=== PATIENT | female | born 1960 | race Caucasian/White ===

== ENCOUNTER 2019-11-10 19:38 | Inpatient (IN) | payer MEDICARE, OTHER ==
[~2019-11-10] VITALS: Ht 152.4 cm; Wt 84.4 kg
--- NOTE | 2019-11-10 20:05 | NUR ---
PT [facility] FOR ADMISSION TO GPS AND PSHYCHIATRIC EVAL SEEKING INPATIENT TREATMENT FOR DEPRESSION. PT AAO, VSS, NO ACUTE DISTRESS NOTED, COOPERATIVE. PT CONENCTED TO THE MONITOR AND POX
--- NOTE | 2019-11-10 20:26 | NUR ---
DR LEBRON AT BEDSIDE
--- NOTE | 2019-11-10 20:26 | NUR ---
URINE COLLECTED AND SENT TO LAB
[2019-11-10 20:42] LABS: BASOPHILS % (AUTO) 0.2 % (0.0-2.0); HEMATOCRIT 31 % (33-45); HEMOGLOBIN 10.5 g/dL (11.5-14.8); LYMPHOCYTES # (AUTO) 0.5 /CMM (0.8-4.8); LYMPHOCYTES % (AUTO) 7.7 % (20.0-44.0); MEAN CORPUSCULAR HGB CONC 34 g/dl (31.0-36.0); MEAN CORPUSCULAR VOLUME 92 fL (82-100); MONOCYTES % (AUTO) 0.8 % (2.0-12.0); NEUTROPHILS # (AUTO) 5.7 /CMM (1.8-8.9); NEUTROPHILS % (AUTO) 91.3 % (43.0-81.0); PLATELET COUNT (AUTO) 153 /CMM (150-450); RED BLOOD CELL COUNT(AUTO) 3.34 MIL/uL (4.0-5.2); WHITE BLOOD COUNT (AUTO) 6.2 K/uL (4.3-11.0)
[2019-11-10 20:47] LABS: CALCIUM, SERUM 8.6 mg/dL (8.5-10.1); CARBON DIOXIDE 26 mmol/L (21-32); CHLORIDE 97 mmol/L (98-107); CREATININE 1.1 mg/dL (0.6-1.3); GLUCOSE 122 mg/dL (74-106); SODIUM SERUM 135 mmol/L (136-145); UREA NITROGEN, BLOOD 11 mg/dL (7-18)
[2019-11-10 20:50] LABS: POTASSIUM 2.8 mmol/L (3.5-5.1)
[2019-11-10 20:55] LABS: ALANINE AMINOTRANSFERASE 40 U/L (12-78); ALKALINE PHOSPHATASE 83 U/L (46-116); ASPARTATE AMINOTRANSFERASE 87 U/L (15-37); BILIRUBIN,DIRECT 0.2 mg/dL (0.0-0.2); BILIRUBIN,TOTAL 0.5 mg/dL (0.2-1.0); TOTAL PROTEIN, SERUM 6.8 g/dL (6.4-8.2)
[2019-11-10 20:56] LABS: ACETAMINOPHEN < 2 ug/ml (10-30); ALCOHOL, BLOOD < 3 mg/dL (0-0); SALICYLATE < 2.8 mg/dL (2.8-20.0)
[2019-11-10 20:57] LABS: APPEARANCE,URINE CLEAR (CLEAR); BILIRUBIN,URINE SMALL (NEGATIVE); BLOOD, URINE MODERATE Ery/uL (NEGATIVE); COLOR,URINE YELLOW (YELLOW); KETONES,URINE 15 (NEGATIVE); LEUKOCYTE ESTERASE ,URINE NEGATIVE (NEGATIVE); NITRITE, URINE NEGATIVE (NEGATIVE); PROTEIN,URINE NEGATIVE (NEGATIVE); UGLUCOSE NEGATIVE (NEGATIVE); UROBILINOGEN,URINE 0.2 EU/dL (0.2)
[2019-11-10] MEDS ORDERED: POTASSIUM CL. PREMIX PERIPHER. 50 ML ONE ×2 (20:58→21:54)
[2019-11-10] MEDS: POTASSIUM CL. PREMIX PERIPHER. 50 ML IV SCH ×3 (21:10→23:53)
[2019-11-10 21:15] LABS: BACTERIA,URINE None seen /HPF (None Seen); SQUAMOUS EPITHELIAL CELL,UR Few /HPF (None Seen); WBC,URINE NONE SEEN /HPF (0-3)
--- NOTE | 2019-11-10 22:16 | NUR ---
PANEL CALL IN PROGRESS WITH DR JERONIMO
--- NOTE | 2019-11-10 22:43 | NUR ---
REPORT GIVEN TO REGIS EID
[2019-11-10] MEDS ORDERED: POTASSIUM CL. PREMIX PERIPHER. 100 ML ONE (22:48)
[2019-11-10] MEDS ORDERED: ONDANSETRON HCL/PF 4 MG/2 ML VIAL IVP PRN (23:30)
[2019-11-10] MEDS ORDERED: HYDROCODONE/APAP 5/325MG 1 EACH TABLET PO PRN (23:30)
[2019-11-10] MEDS ORDERED: ACETAMINOPHEN 325 MG TABLET PO PRN (23:30)
[2019-11-10] MEDS ORDERED: ZOLPIDEM TARTRATE 5 MG TABLET PO PRN (23:30)
--- NOTE | 2019-11-10 23:30 | NUR ---
MS BULB FARMWORKER NOTES RECEIVED FROM ER PER KENA THIS 59 YO FEMALE,ALERT,ORIENTED X 3-4, WITH DX OF HYPOKALEMIA,K LEVEL OF 2.8,AMBULATES WITH STANDBY ASSIST,IV POTASSIUM SECOND BAG IN PROGRESS VIA IV PUMP,SITE PATENT ON RIGHT HAND.NOTED RIGHT AND LEFT ARM SKIN DISCOLORATION,RIGHT UPPER CHEST OLD WOUND , NO DISCHARGES NOTED,OPEN TO AIR.WITH RIGHT AND LEFT GROIN REDNESS AND DIAPER RASH ON BILATERAL BUTTOCKS,WASH WITH SOAP AND WATER AND MANAGE WITH SKIN BARRIER.CALL LIGHT IN REACH,NEEDS ANTICIPATED.
[2019-11-11] VITALS: BP 113/67
--- NOTE | 2019-11-11 00:15 | NUR ---
MS RN NOTES MD VISIT SEEN AND EXAMINED BY DR PHANI MD HOSPITALIST TEASEL GIG OPERATOR TONLYNN,WITH ORDERS NOTED AND CARRIED OUT.
[2019-11-11] MEDS: POTASSIUM CL. PREMIX PERIPHER. 50 ML IV SCH ×5 (00:58→23:15)
[2019-11-11] MEDS ORDERED: LAMO25TA10 PO (02:07)
[2019-11-11] MEDS ORDERED: SACC250C PO (02:07)
[2019-11-11] MEDS ORDERED: PANT40TA2 PO (02:07)
[2019-11-11] MEDS ORDERED: LEVO100T9 PO (02:07)
[2019-11-11] MEDS ORDERED: POTA20TA83 PO (02:07)
[2019-11-11] MEDS ORDERED: ALEN70TA6 PO (02:07)
[2019-11-11] MEDS ORDERED: METH2.5T PO (02:07)
--- NOTE | 2019-11-11 06:33 | NUR ---
MS RN NOTES WITH EPISODE OF WANDERING THIS MORNING.GOING ONE ROOM TO ANOTHER ROOM,REDIRECTABLE.COMPLETED 4 BAGS OF POTASSIUM,TOLERATED WELL.REFUSED EARLY BLOOD DRAW FOR BLOOD TEST.WANTS IT LATER.IN NO ACUTE DISTRESS.WILL ENDORSE TO DAY NURSE FOR ERIKA.
[2019-11-11] MEDS: PANTOPRAZOLE 40 MG TABLET.DR PO SCH (07:30)
--- NOTE | 2019-11-11 08:02 | NUR ---
RN OPENING NOTES Patient received on room air, no sob noted, patient denies pain at this time. Patient remains a/o x 3-4. Regular diet, HC @ R hand with 22 gauge. bed at the lowest setting, call light within reach, side rails up x2.
[2019-11-11] MEDS: DOCUSATE SODIUM 100 MG CAPSULE PO SCH ×2 (08:31→16:45)
--- NOTE | 2019-11-11 08:34 | NUR ---
rn notes patient removed IV line at this time
[2019-11-11 09:22] VITALS: BP 118/66
[2019-11-11 15:35] LABS: BASOPHILS % (AUTO) 0.1 % (0.0-2.0); EOSINOPHILS % (AUTO) 0.1 % (0.0-6.0); HEMATOCRIT 30 % (33-45); HEMOGLOBIN 10.2 g/dL (11.5-14.8); LYMPHOCYTES # (AUTO) 1.1 /CMM (0.8-4.8); LYMPHOCYTES % (AUTO) 20.7 % (20.0-44.0); MEAN CORPUSCULAR HGB CONC 34 g/dl (31.0-36.0); MEAN CORPUSCULAR VOLUME 93 fL (82-100); MONOCYTES # (AUTO) 0.1 /CMM (0.1-1.30); MONOCYTES % (AUTO) 1.9 % (2.0-12.0); NEUTROPHILS # (AUTO) 4.2 /CMM (1.8-8.9); NEUTROPHILS % (AUTO) 77.2 % (43.0-81.0); PLATELET COUNT (AUTO) 107 /CMM (150-450); RED BLOOD CELL COUNT(AUTO) 3.21 MIL/uL (4.0-5.2); WHITE BLOOD COUNT (AUTO) 5.4 K/uL (4.3-11.0)
[2019-11-11 15:44] LABS: ALBUMIN 2.8 g/dL (3.4-5.0); BILIRUBIN,TOTAL 0.4 mg/dL (0.2-1.0); CALCIUM, SERUM 8.5 mg/dL (8.5-10.1); CREATININE 1.1 mg/dL (0.6-1.3); MAGNESIUM 2.1 mg/dL (1.8-2.4); PHOSPHORUS 1.6 mg/dL (2.5-4.9); TOTAL PROTEIN, SERUM 6.1 g/dL (6.4-8.2)
[2019-11-11 15:49] LABS: POTASSIUM 2.7 mmol/L (3.5-5.1)
[2019-11-11 15:51] LABS: THYROID STIMULATING HORMONE 0.042 uIU/mL (0.358-3.74)
--- NOTE | 2019-11-11 16:02 | NUR ---
rn notes Potassium level of 2.7 reported from LAB. TRANSFILL TECHNICIAN Angel Bowman made aware via text.
[2019-11-11 16:19] VITALS: BP 116/74
[2019-11-11] MEDS ORDERED: ASPIRIN 325 MG TABLET PO ONE (16:30)
[2019-11-11] MEDS: LamoTRIgine 25 MG TABLET PO SCH (16:45)
[2019-11-11] MEDS: ACIDOPHILUS/BULGARICUS 1 EACH TAB.CHEW PO SCH (16:45)
--- NOTE | 2019-11-11 16:55 | NUR ---
rn notes multiple attempts for IV at this time, unsuccessful. CATCHER FILTER TIP Angel ordered for a midline.
[2019-11-11 16:56] LABS: CALCIUM, SERUM 8.4 mg/dL (8.5-10.1); CREATININE 1.1 mg/dL (0.6-1.3)
[2019-11-11 16:58] LABS: POTASSIUM 2.7 mmol/L (3.5-5.1)
--- NOTE | 2019-11-11 18:26 | NUR ---
RN CLOSING NOTES Patient remains on room air, no sob noted, patient acts confused at times but mainly around 1/o x2. ambulatory with good balance. IV line re established at her L hand size 22. Potassium low at 2.7, but hospitalist aware. Patient receiving IV potassium at this time. Plan is for patient to go to GPS after medically clear. Bed at the lowest setting, call light within reach, side rails up x2.
--- NOTE | 2019-11-11 19:30 | NUR ---
MS RN NOTE: PATIENT RESTING IN BED, NO ACUTE DISTRESS NOTED. BREATHING EVEN AND UNLABORED, NO SOB NOTED. IV TO RIGHT HAND IN PLACE. BED LOCKED AND IN LOWEST POSITION, CALL LIGHT IN REACH. WILL CONTINUE TO MONITOR.
[2019-11-11 20:00] VITALS: BP 126/72
[2019-11-11] MEDS ORDERED: METHOTREXATE SODIUM (2.5MG) 2.5 MG TABLET PO SCH (21:00)
--- NOTE | 2019-11-12 00:15 | NUR ---
MS RN NOTE: PATIENT COMPLAINS OF IV POTASSIUM HURTS AND REFUSED TO CONTINUE WITH MORE IV MEDICATIONS, SPOKE TO BUSHLER MD, DR. JERONIMO AND RECEIVED ORDERS FOR POTASSIUM 40MEQ ORAL ONCE. ORDER NOTED AND CARRIED OUT. WILL CONTINUE TO MONITOR.
--- NOTE | 2019-11-12 06:05 | NUR ---
MS RN NOTE: PATIENT RESTING IN BED, NO ACUTE DISTRESS NOTED. BREATHING EVEN AND UNLABORED, NO SOB NOTED. IV TO RIGHT HAND IN PLACE. BED LOCKED AND IN LOWEST POSITION, CALL LIGHT IN REACH. WILL ENDORSE TO DAY NURSE TO CONTINUE WITH PLAN OF CARE.
[2019-11-12 06:52] LABS: BASOPHILS % (AUTO) 0.2 % (0.0-2.0); EOSINOPHILS % (AUTO) 1.7 % (0.0-6.0); HEMATOCRIT 26 % (33-45); HEMOGLOBIN 8.8 g/dL (11.5-14.8); LYMPHOCYTES # (AUTO) 1.3 /CMM (0.8-4.8); LYMPHOCYTES % (AUTO) 34.6 % (20.0-44.0); MEAN CORPUSCULAR HGB CONC 34 g/dl (31.0-36.0); MEAN CORPUSCULAR VOLUME 92 fL (82-100); MONOCYTES # (AUTO) 0.1 /CMM (0.1-1.30); MONOCYTES % (AUTO) 2.5 % (2.0-12.0); NEUTROPHILS # (AUTO) 2.4 /CMM (1.8-8.9); PLATELET COUNT (AUTO) 82 /CMM (150-450); RED BLOOD CELL COUNT(AUTO) 2.78 MIL/uL (4.0-5.2); WHITE BLOOD COUNT (AUTO) 3.9 K/uL (4.3-11.0)
[2019-11-12 07:24] LABS: CALCIUM, SERUM 8.2 mg/dL (8.5-10.1); CREATININE 0.9 mg/dL (0.6-1.3)
--- NOTE | 2019-11-12 07:30 | NUR ---
RN MS NOTES PT ASLEEP, EASY TO AROUSE, NO SIGN OF PAIN, NOT IN DISTRESS, CALL LIGHT WITHIN REACH, KEPT WARM AND COMFORTABLE IN BED.
[2019-11-12 07:42] LABS: POTASSIUM 2.6 mmol/L (3.5-5.1)
[2019-11-12 08:00] VITALS: BP 114/69
[2019-11-12] MEDS: ACIDOPHILUS/BULGARICUS 1 EACH TAB.CHEW PO SCH ×2 (08:21→16:46)
[2019-11-12] MEDS: PANTOPRAZOLE 40 MG TABLET.DR PO SCH (08:21)
[2019-11-12] MEDS: POTASSIUM CHLORIDE 20 MEQ TAB.PRT.SR PO SCH ×6 (08:22→15:02)
[2019-11-12] MEDS: ASPIRIN 81 MG TAB.CHEW PO SCH (08:22)
[2019-11-12] MEDS: DOCUSATE SODIUM 100 MG CAPSULE PO SCH ×2 (08:22→16:46)
[2019-11-12] MEDS: LamoTRIgine 25 MG TABLET PO SCH ×2 (08:22→16:46)
[2019-11-12] MEDS: LEVOTHYROXINE SODIUM 100 MCG TABLET PO SCH (08:22)
[2019-11-12 08:55] LABS: THYROID STIMULATING HORMONE 0.061 uIU/mL (0.358-3.74)
[2019-11-12] MEDS ORDERED: PANTOPRAZOLE 40 MG TABLET.DR PO SCH (09:00)
[2019-11-12 10:10] LABS: LYMPHOCYTES % (MANUAL) 30 % (16-48); MONOCYTES % (MANUAL) 5 % (0-11.0); NEUTROPHILS % (MANUAL) 65 (42-76)
--- NOTE | 2019-11-12 10:34 | NUR ---
RN MS NOTES PT SEEN AND EXAMINED BY DR. SPENCER, PLAN OF CARE DISCUSSED WITH PT. VERBALIZED UNDERSTANDING, PER MD, PT'S IV LINE ACCIDENTALLY OUT, PT HARDSTICK, PER MD, OK TO INSERT MIDLINE IF NEEDED, PT INFORMED AND AGREED.
--- NOTE | 2019-11-12 13:00 | NUR ---
RN MS NOTES PT IN BED, AWAKE, ALERT AND ORIENTED, NO COMPLAINT AT THIS TIME, S/P MIDLINE PLACEMENT, TOLERATED WELL. CALL LIGHT WITHIN REACH, ASSISTED TO BATHROOM NEEDED, NEEDS ATTENDED.
[2019-11-12 14:26] LABS: CREATININE, URINE 83.9 MG/DL (30.0-125.0)
[2019-11-12 16:00] VITALS: BP_SYST 114; BP_SYST 122; BP_DIAS 67; BP_DIAS 69
--- NOTE | 2019-11-12 18:36 | NUR ---
RN MS NOTES PT IN BED, AWAKE, ALERT AND ORIENTED, DENIES PAIN, NOT IN DISTRESS, CALL LIGHT WITHIN REACH, ASSISTED TO BATHROOM NEEDED, COMPLIANT WITH MEDS AND INTERVENTIONS, NO BEHAVIOR PROBLEM NOTED, ALL NEEDS ATTENDED.
--- NOTE | 2019-11-12 19:25 | NUR ---
RN OPEN NOTES RECEIVED PATIENT AWAKE IN BED. A/OX3. NO SIGNS OF DISTRESS OR DISCOMFORT. BREATHING EVEN AND UNLABORED. HAS JUANIS MIDLINE, PATENT AND INTACT, NO SIGNS OF REDNESS OR INFILTRATION. BED IN LOW LOCKED POSITION WITH SIDE RAILS X2. CALL LIGHT WITHIN REACH. WILL CONTINUE TO MONITOR.
[2019-11-12 20:00] VITALS: BP 129/73
[2019-11-12 20:14] LABS: HEMOGLOBIN 9.1 g/dL (11.5-14.8)
[2019-11-12] MEDS ORDERED: POTASSIUM CHLORIDE 20 MEQ TAB.PRT.SR PO ONE ×2 (23:30)
--- NOTE | 2019-11-13 06:51 | NUR ---
RN CLOSING NOTES PATIENT RESTING COMFORTABLY IN BED, EASILY AROUSABLE. A/OX3. NO SIGNS OF DISTRESS OR DISCOMFORT. BREATHING EVEN AND UNLABORED. HAS JUANIS MIDLINE, PATENT AND INTACT, NO SIGNS OF REDNESS OR INFILTRATION. ALL NEEDS MET. NO SIGNIFICANT CHANGES THROUGH THE NIGHT. BED IN LOW LOCKED POSITION WITH SIDE RAILS X2. CALL LIGHT WITHIN REACH. WILL ENDORSE TO AM SHIFT FOR ERIKA.
[2019-11-13 07:06] LABS: BASOPHILS % (AUTO) 0.4 % (0.0-2.0); EOSINOPHILS % (AUTO) 6.2 % (0.0-6.0); HEMATOCRIT 26 % (33-45); HEMOGLOBIN 8.9 g/dL (11.5-14.8); LYMPHOCYTES # (AUTO) 1.7 /CMM (0.8-4.8); MEAN CORPUSCULAR HGB CONC 34 g/dl (31.0-36.0); MEAN CORPUSCULAR VOLUME 93 fL (82-100); MONOCYTES % (AUTO) 0.9 % (2.0-12.0); NEUTROPHILS # (AUTO) 2.5 /CMM (1.8-8.9); NEUTROPHILS % (AUTO) 54.5 % (43.0-81.0); PLATELET COUNT (AUTO) 83 /CMM (150-450); WHITE BLOOD COUNT (AUTO) 4.6 K/uL (4.3-11.0)
[2019-11-13 07:27] LABS: CALCIUM, SERUM 7.9 mg/dL (8.5-10.1); CREATININE 0.9 mg/dL (0.6-1.3); POTASSIUM 3.1 mmol/L (3.5-5.1)
--- NOTE | 2019-11-13 07:30 | NUR ---
RN MS NOTES PT IN BED, ASLEEP, EASY TO AROUSE, ALERT AND ORIENTED, NO COMPLAINT OF PAIN, NOT IN DISTRESS, CALL LIGHT WITHIN REACH, KEPT DIRECTOR OF INSTRUCTIONAL TECHNOLOGY BED.
[2019-11-13 08:00] VITALS: BP 118/72
[2019-11-13] MEDS: DOCUSATE SODIUM 100 MG CAPSULE PO SCH ×2 (08:31→16:40)
[2019-11-13] MEDS: LEVOTHYROXINE SODIUM 100 MCG TABLET PO SCH (08:31)
[2019-11-13] MEDS: LamoTRIgine 25 MG TABLET PO SCH ×2 (08:31→16:40)
[2019-11-13] MEDS: PANTOPRAZOLE 40 MG TABLET.DR PO SCH (08:31)
[2019-11-13] MEDS: ASPIRIN 81 MG TAB.CHEW PO SCH (08:31)
[2019-11-13] MEDS: POTASSIUM CHLORIDE 20 MEQ TAB.PRT.SR PO SCH ×4 (08:31→11:17)
[2019-11-13] MEDS: ACIDOPHILUS/BULGARICUS 1 EACH TAB.CHEW PO SCH ×2 (08:31→16:40)
[2019-11-13] MEDS ORDERED: ASPI-1169 PO (09:34)
[2019-11-13 16:21] VITALS: BP 140/68
--- NOTE | 2019-11-13 18:28 | NUR ---
RN MS NOTES PT IN BED, AWAKE, ALERT AND VERBALLY RESPONSIVE, DENIES PAIN, NOT IN DISTRESS, CALL LIGHT WITHIN REACH, ASSISTED TO BATHROOM NEEDED, NO BEHAVIOR PROBLEM NOTED, COMPLIANT WITH MEDS AND NURSING INTERVENTION, DUE MEDS GIVEN, SAFETY PRECAUTIONS OBSERVED, ALL NEEDS ATTENDED.
--- NOTE | 2019-11-13 19:00 | NUR ---
RN medsurg opening notes Received Pt from morning nurse. Pt is alert and orinetedX3. Respiration is normal in room air. No SOB. No S/S of distress noted. JUANIS midline is clean, intact, patent and flush without resistance. Safety precautions is maintained. Bed at low position, brakes locked, side rails upX3 and call light is within reach. Will continue to monitor.
[2019-11-13 20:00] VITALS: BP 136/78
[2019-11-13 20:03] VITALS: BP 136/78
--- NOTE | 2019-11-13 21:40 | NUR ---
RN medsurg notes Pt refused skin pictures taken. Made aware risks and benefits. Pt keep refusing.
--- NOTE | 2019-11-13 21:50 | NUR ---
STANTON eng transferred notes Transferred Pt To GPS with a wheelchair with RADHIKA Cotter. Report given to STANTON BRISENO. Pt's belongings is given to STANTON Briseno. VS is stable. JUANIS midline is removed. D/C paperwork is signed by Pt. Pt verbalized understanding. Pt's belonging is signed and given to Pt. Pt verbalize understanding.
[2019-11-14] MEDS ORDERED: SACC250C PO (01:56)
[2019-11-14] MEDS ORDERED: METH2.5T PO (01:56)
[2019-11-14] MEDS ORDERED: ALEN70TA6 PO (01:56)
[2019-11-14] MEDS ORDERED: PANT40TA2 PO (01:56)
[2019-11-14] MEDS ORDERED: LAMO25TA10 PO (01:56)
[2019-11-14] MEDS ORDERED: LEVO100T9 PO (01:56)
[2019-11-14] MEDS ORDERED: POTA20TA83 PO (01:56)
[2019-11-14] MEDS ORDERED: ASPI-605 PO (01:56)
[2019-11-16] MEDS ORDERED: ALENDRONATE 70 MG TABLET PO SCH (06:30)
[2019-11-16] MEDS ORDERED: METHOTREXATE SODIUM (2.5MG) 2.5 MG TABLET PO SCH (09:00)
== END 2019-11-13 21:50 | DRG 640 ==
LOC: ER 19:39 → MED 22:54
PROVIDERS: ADMIT Internal Medicine; ATTEND Nurse Practitioner Acute Care
PROC: 05HB33Z Insertion of Infusion Device into Right Basilic Vein, Percutaneous Approach (ICD-10-PCS; principal; 2019-11-12)
DX: E87.6 Hypokalemia (principal); I21.A1 Myocardial infarction type 2; E23.0 Hypopituitarism; D68.59 Other primary thrombophilia; I10 Essential (primary) hypertension; R29.6 Repeated falls; Z79.890 Hormone replacement therapy; Z79.82 Long term (current) use of aspirin; Z86.011 Personal history of benign neoplasm of the brain; D64.9 Anemia, unspecified; E03.9 Hypothyroidism, unspecified; E87.1 Hypo-osmolality and hyponatremia; Z88.0 Allergy status to penicillin; Z88.8 Allergy status to other drugs, medicaments and biological substances; Z79.899 Other long term (current) drug therapy; Z79.83 Long term (current) use of bisphosphonates; D63.8 Anemia in other chronic diseases classified elsewhere; Z91.81 History of falling; R26.9 Unspecified abnormalities of gait and mobility; Z68.36 Body mass index [BMI] 36.0-36.9, adult; E66.01 Morbid (severe) obesity due to excess calories; F32.9 Major depressive disorder, single episode, unspecified; F41.9 Anxiety disorder, unspecified; E88.81 Metabolic syndrome and other insulin resistance; Z74.09 Other reduced mobility; J01.20 Acute ethmoidal sinusitis, unspecified
CPT/HCPCS: 36415; 70450-TC; 71045-TC; 80048-TC; 80053-TC; 80061-TC; 80076-TC; 80305; 81000-TC; 82570-TC; 83735-TC; 84100-TC; 84132-TC; 84133-TC; 84439-TC; 84443-TC; 84484-TC; 85025-TC; 85027-TC; 87081-TC; 93307-TC; G0378; G0480; J3480; J7050; J8610

== ENCOUNTER 2019-11-13 22:20 | Inpatient (IN) | payer MEDICARE, OTHER ==
[~2019-11-13] VITALS: Ht 157.5 cm; Wt 82.1 kg
[2019-11-13 22:00] VITALS: BP 142/98
--- NOTE | 2019-11-13 22:00 | NUR ---
GPS ADMISSION NOTES: ADMITTED A 59YO FEMALE FROM [facility]LOOR ON VOLUNTARY HOLD. PATIENT WAS INITIALLY ADMITTED AT THE MED SURG FLOOR DUE TO HYPOKALEMIA. PATIENT SIGNED TO BE ADMITTED HERE VOLUNTARILY. PATIENT WILL BE UNDER THE CARE OF DR. KONG AND DR. JERONIMO FOR PSYCH AND MEDICAL RESPECTIVELY. DR. KONG WAS ON THE UNIT FOR ROUNDS DURING HER TRANSFER. PATIENT WAS BROUGHT INTO THE UNIT VIA WHEELCHAIR. UPON FACE TO FACE ASSESSMENT, PATIENT PRESENTS ALERT AND ORIENTED X3, APPEARS SAD, DEPRESSED, TALKS MINIMALLY, SHOWS LESS INTEREST OF THE SURROUNDING AROUND HER, NOTED TO BE UNKEMPT. REALITY ORIENTATION DONE. SKIN AND BODY ASSESSMENT DONE- PICTURES TAKEN AND PLACED IN THE CHART. WOUND CONSULT TRIGGERED FOR THE REDNESS AND SCRATCH LEDESMA ON HER SACRAL AREA. WHEN ASKED ABOUT HOW SHE GOT THE REDNESS, PATIENT STATED "I MUST'VE SCRATCH MYSELF, OR I DON'T KNOW". DURING ASSESSMENT INTERVIEW PATIENT SEEMS UNSURE OF HER ANSWERS. SHE WAS MADE TO SIGN THE ADMISSION PAPERS WHICH WE WAS ABLE TO DO WITH NO PROBLEM. PT EVAL TRIGGERED O FOR PATIENT- SHE HAS HAD MULTIPLE FALLS AT HOME.ACCORDING TO PATIENT, SHE LIVES AT HOME WITH 80SOMETHING YEAR OLD MOM AND HER 25YO NIECE. AND THAT THEY'VE HAD TO CALL COIN MACHINE ASSEMBLER ON MULTIPLE OCCASIONS BECAUSE OF HER FALLS. PATIENT ORIGINALLY WAS AT [facility] THEN BROUGHT TO [facility]. PATIENT ORIENTED OF THE UNIT, STAFF, DOCTORS AND CARE PLAN. TREATMENT PLAN INITIATED. PROVIDED PATIENT WITH PATIENT'S RIGHTS HANDBOOK AND GUIDE TO PRESCRIPTION MEDICATIONS.WILL REPORT MEDICATIONS TO MEDICAL DOCTOR FOR RECONCILIATION. Q15 MIN CHECKS INITIATED. BELONGINGS AND CONTRABAND CHECKED AND PLACED INTO DESIGNATED PLACES APPROPRIATELY. WILL ENDORSE PATIENT TO DAY SHIFT NURSE.
[~2019-11-13 22:20] MED LIST: ALEN70TA6 PO; ASPI-1169 PO; LAMO25TA10 PO; LEVO100T9 PO; METH2.5T PO; PANT40TA2 PO; POTA20TA83 PO; SACC250C PO
[2019-11-13] MEDS ORDERED: MAG HYDROX/AL HYDROX/SIMETH 30 ML UDC PO PRN (22:30)
[2019-11-13] MEDS ORDERED: TEMAZEPAM 7.5 MG CAPSULE PO PRN (22:30)
[2019-11-13] MEDS ORDERED: BLOOD SUGAR DIAGNOSTIC 1 EACH STRIP IN ONE (22:30)
[2019-11-13] MEDS ORDERED: ACETAMINOPHEN 325 MG TABLET PO PRN (22:30)
[2019-11-13] MEDS ORDERED: LORAZEPAM 0.5 MG TABLET PO PRN (22:30)
[2019-11-13] MEDS ORDERED: MAGNESIUM HYDROXIDE 30 ML UDC PO PRN (22:30)
[2019-11-14] MEDS ORDERED: METH2.5T PO (01:56)
[2019-11-14] MEDS ORDERED: ASPI-605 PO (01:56)
[2019-11-14] MEDS ORDERED: PANT40TA2 PO (01:56)
[2019-11-14] MEDS ORDERED: LEVO100T9 PO (01:56)
[2019-11-14] MEDS ORDERED: SACC250C PO (01:56)
[2019-11-14] MEDS ORDERED: POTA20TA83 PO (01:56)
[2019-11-14] MEDS ORDERED: ALEN70TA6 PO (01:56)
[2019-11-14] MEDS ORDERED: LAMO25TA10 PO (01:56)
[2019-11-14 08:00] VITALS: BP 118/66
--- NOTE | 2019-11-14 10:41 | NUR ---
RN-CO: Primary RN Benson notified Dr Cardona for the admission and to reconcile home medications. Made him aware that K level is 3.1.
--- NOTE | 2019-11-14 10:43 | NUR ---
RN-CO: Dr Cardona ordered BMP.
[2019-11-14] MEDS: ACIDOPHILUS/BULGARICUS 1 EACH TAB.CHEW PO SCH ×2 (11:07→16:29)
--- NOTE | 2019-11-14 14:45 | NUR ---
Family Contact: SW called the pts mother, Varsha ([phone]), and left a voicemail stating that she would like to discuss the pts initial treatment and discharge plan.
[2019-11-14 16:00] VITALS: BP 140/78
[2019-11-14] MEDS: LamoTRIgine 25 MG TABLET PO SCH (16:29)
[2019-11-14 20:30] VITALS: BP 120/82
[2019-11-14 22:00] VITALS: BP 118/66
[2019-11-15] VITALS (9 sets, daily range): BP systolic 69–145; BP diastolic 47–89
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
[2019-11-15 07:14] LABS: CALCIUM, SERUM 8.5 mg/dL (8.5-10.1); CREATININE 0.9 mg/dL (0.6-1.3); POTASSIUM 2.9 mmol/L (3.5-5.1)
[2019-11-15] MEDS: LEVOTHYROXINE SODIUM 100 MCG TABLET PO SCH (08:44)
[2019-11-15] MEDS: PANTOPRAZOLE 40 MG TABLET.DR PO SCH (08:44)
[2019-11-15] MEDS: LamoTRIgine 25 MG TABLET PO SCH ×2 (08:44→17:12)
[2019-11-15] MEDS: POTASSIUM CHLORIDE 20 MEQ TAB.PRT.SR PO SCH ×3 (08:44→12:48)
[2019-11-15] MEDS: ESCITALOPRAM OXALATE (10 MG) 10 MG TABLET PO SCH (08:45)
[2019-11-15] MEDS: ACIDOPHILUS/BULGARICUS 1 EACH TAB.CHEW PO SCH ×2 (08:45→17:12)
[2019-11-15] MEDS: ASPIRIN EC 81 MG TABLET.DR PO SCH (08:45)
--- NOTE | 2019-11-15 08:46 | NUR ---
Initial Discharge Plan: Pt currently resides at her home with her mother and her niece located at [address] [place] [address]; ([phone]). Per pt, she would like to return to her home. XAVI will work with the pt and the MD regarding appropriate discharge planning. SW will form a safe and proper discharge plan.
--- NOTE | 2019-11-15 10:15 | NUR ---
RT NOTES Rapid response was called, pt observed to be on room air (SpO2 100%) with no SOB or respiratory distress noted. RT was cleared by char house supervisor
[2019-11-15] MEDS ORDERED: POTASSIUM CHLORIDE 20 MEQ TAB.PRT.SR PO SCH (10:30)
--- NOTE | 2019-11-15 10:59 | NUR ---
WOUND CARE CONSULT: PT PRESENTS WITH SOME INCONTINENCE ASSOCIATED SKIN DAMAGE TO BUTTOCKS WITH SOME SCRATCH LEDESMA PRESENT ON ADMISSION. RECOMMENDATIONS MADE FOR SKIN CARE AND PROTECTION. DISCUSSED WITH NURSING STAFF. WILL SEE PRN. BARNEY IN AGREEMENT WITH PLAN OF CARE. Addendum: 11/15/19 at 1100 by SHAHLA SCHULTE WNDNU Amended: Links added.
--- NOTE | 2019-11-15 10:59 | NUR ---
RN NOTE- RAPID RESPONSE TEAM CALLED. PT W B/P 69/47, HR- 78, RR-16, SATS 99% RA. PT SOMNOLENT THOUGH RESPONSIVE. ACCUCHECK -108. PT PLACED IN [place] AND SUBSEQUENT IMPROVEMENT OF BP RESULTED. DR BEASLEY NOTIFIED AND AWARE. WILL FOLLOW UP AND MONITOR PT .
[2019-11-15] MEDS ORDERED: Z GUARD REMEDY 2 OZ OINT TP PRN (11:00)
[2019-11-15] MEDS: Z GUARD REMEDY 2 OZ OINT TP SCH (11:18)
--- NOTE | 2019-11-15 11:29 | NUR ---
RN NOTE- PT BP MUCH BETTER. ALERT RESPONSIVE. BP- 121/74, HR-90, RR-18, TEMP- 98.0. DR BEASLEY ORDERED POTASSIUM 40 MEQ WHICH WAS GIVEN. WILL CONTINUE TO MONITOR PT VS AND STATUS.
--- NOTE | 2019-11-15 15:34 | NUR ---
RN-CO: Dr Cardona seen and examined the patient with order of PT evaluation and treatment. Noted. Made MD aware of patient's poor PO intake.
--- NOTE | 2019-11-16 05:53 | NUR ---
PRN NOTE PT V/S TAKEN @ 0535 BP105/75, P101, O2 SAT 97%. PT WEAK, ASHEN LOOKING, NEEDED 2 PERSON ASSIST TO STAND. INITIALLY REFUSED PEST CONTROLLER TO CHANGE HER DIAPER, SKILLED NURSE PROVIDED TEACHING ON THE IMPORTANCE OF SKIN INTEGRITY AND INFECTION CONTROL BEFORE PT RELUCTANTLY AGREED FOR HER DIAPER TO BE CHANGED. WILL CONTINUE TO MONITOR AND ENDORSE TO AM SHIFT.
[2019-11-16 06:42] LABS: EOSINOPHILS % (AUTO) 12.8 % (0.0-6.0); HEMATOCRIT 32 % (33-45); HEMOGLOBIN 10.8 g/dL (11.5-14.8); LYMPHOCYTES # (AUTO) 1.1 /CMM (0.8-4.8); LYMPHOCYTES % (AUTO) 34.7 % (20.0-44.0); MEAN CORPUSCULAR HGB CONC 34 g/dl (31.0-36.0); MEAN CORPUSCULAR VOLUME 92 fL (82-100); MONOCYTES # (AUTO) 0.1 /CMM (0.1-1.30); MONOCYTES % (AUTO) 2.7 % (2.0-12.0); NEUTROPHILS # (AUTO) 1.5 /CMM (1.8-8.9); NEUTROPHILS % (AUTO) 48.8 % (43.0-81.0); PLATELET COUNT (AUTO) 70 /CMM (150-450); RED BLOOD CELL COUNT(AUTO) 3.42 MIL/uL (4.0-5.2)
[2019-11-16 07:09] LABS: CALCIUM, SERUM 8.8 mg/dL (8.5-10.1); CREATININE 1.1 mg/dL (0.6-1.3)
[2019-11-16] MEDS: LEVOTHYROXINE SODIUM 100 MCG TABLET PO SCH (07:59)
[2019-11-16 08:00] VITALS: BP_SYST 112; BP_SYST 138; BP_DIAS 59; BP_DIAS 82
[2019-11-16] MEDS: ASPIRIN EC 81 MG TABLET.DR PO SCH (08:00)
[2019-11-16] MEDS: ACIDOPHILUS/BULGARICUS 1 EACH TAB.CHEW PO SCH (08:00)
[2019-11-16] MEDS: POTASSIUM CHLORIDE 20 MEQ TAB.PRT.SR PO SCH (08:00)
[2019-11-16] MEDS: PANTOPRAZOLE 40 MG TABLET.DR PO SCH (08:00)
[2019-11-16] MEDS: LamoTRIgine 25 MG TABLET PO SCH (08:00)
[2019-11-16] MEDS: ESCITALOPRAM OXALATE (10 MG) 10 MG TABLET PO SCH (08:00)
--- NOTE | 2019-11-16 08:12 | NUR ---
GPS RN NOTE: PT WAS SEEN BY DR. BEASLEY, NOTIFIED PT LABS THIS MORNING WBC 3.O,TBC 3.42.HG 10.8 HCT 32.PH 70,NA 13O,K 3.0,BUN 6.BP 112/59,T 99.1,P 53,R 19. PT VOMITING, NOT EATING NOT DRINKING. NO NEW ORDERS AT THIS TIME.
[2019-11-16] MEDS: Z GUARD REMEDY 2 OZ OINT TP SCH (08:14)
[2019-11-16] MEDS ORDERED: ALENDRONATE 70 MG TABLET PO SCH (09:00)
[2019-11-16] MEDS ORDERED: IV NS 0.9% 1,000 ML IV SCH (09:00)
[2019-11-16] MEDS: POTASSIUM CHLORIDE 20 MEQ TAB.PRT.SR PO ONE ×2 (09:03→09:13)
[2019-11-16] MEDS ORDERED: IV NS 0.9% 1,000 ML IV PRN (09:30)
--- NOTE | 2019-11-16 09:36 | NUR ---
GPS RN NOTE; PT UNABLE TO TAKE POTASSIUM 80 MEQ CONTINUE VOMITING GREENISH COLOR WITH BLOOD MD AWARE, VS PB 96/61,PA 103, O2 95%, T 101 AFTER TYLENOL. GALE BAEZ NOTIFIED WITH ORDER TO TRANSFER TO MEDICAL FLOOR.
--- NOTE | 2019-11-16 09:56 | NUR ---
Dr. Hansen made awake of the transfer and ordered to d/c pt. to the medical floor and to hold psych meds.
[2019-11-16 10:21] LABS: BAND % (MANUAL) 2 % (0.0-5.0); EOSINOPHILS % (MANUAL) 11 % (0-4); LYMPHOCYTES % (MANUAL) 20 % (16-48); MONOCYTES % (MANUAL) 7 % (0-11.0); NEUTROPHILS % (MANUAL) 60 (42-76)
--- NOTE | 2019-11-16 10:45 | NUR ---
GPS DISCHARGE NOTE: PATIENT IS A 59Y/O DISCHARGED TO TELE ROOM 308 B REPORT GIVEN TO LEANN EID . DIAGNOSIS HYPOKALEMIA PER DR GALE KIMBROUGH PT TO MEDICAL FLOOR, PT REFUSED SKIN ASSESSMENT AT THE TIME OF DISCHARGE, DENIES SI/HI AVH, PERSONAL BELONGINGS TRANSFER WITH PATIENT. MEDICATIONS RECONCILED WITH ALONG WITH PSYCHIATRIC DISCHARGE ORDERS GIVEN WITH PATIENT .PATIENT REFUSED TO SIGN DISCHARGE PAPERWORK DUE TO WEAKNESS.
--- NOTE | 2019-11-16 10:47 | NUR ---
Discharge Note: Pt was discharged to the Medical Floor of [facility] due to abnormal labs.
--- NOTE | 2019-11-16 10:47 | NUR ---
Family Contact: SW called the pts mother, Varsha ([phone]), and left a voicemail stating that the pt was discharged to the medical floor of the hospital today.
[2019-11-16] MEDS ORDERED: ASPI-1152 PO (11:00)
[2019-11-16] MEDS ORDERED: MAG30ORA PO (11:00)
[2019-11-16] MEDS ORDERED: ALLA266C2 TP (11:00)
[2019-11-16] MEDS ORDERED: MAGN400O6 PO (11:00)
[2019-11-16] MEDS ORDERED: TEMA7.5C12 PO (11:00)
[2019-11-16] MEDS ORDERED: ACET-868 PO (11:00)
[2019-11-16] MEDS ORDERED: ESCI5TAB PO (11:00)
[2019-11-16] MEDS ORDERED: ACID1TAB12 PO (11:00)
[2019-11-16] MEDS ORDERED: LORA-259 PO (11:00)
[2019-11-16] MEDS ORDERED: NORM10004 IV (11:00)
[2019-11-18] MEDS ORDERED: METHOTREXATE SODIUM (2.5MG) 2.5 MG TABLET PO SCH (09:00)
== END 2019-11-16 10:45 | disposition short-term general hospital (02) | DRG 885 ==
LOC: GPS 22:20
PROVIDERS: ADMIT Psychiatry & Neurology Psychiatry; ATTEND Internal Medicine
DX: F33.2 Major depressive disorder, recurrent severe without psychotic features (principal); E87.1 Hypo-osmolality and hyponatremia; D68.59 Other primary thrombophilia; F29 Unspecified psychosis not due to a substance or known physiological condition; F41.9 Anxiety disorder, unspecified; E03.9 Hypothyroidism, unspecified; E87.6 Hypokalemia; I10 Essential (primary) hypertension; I25.2 Old myocardial infarction; M19.90 Unspecified osteoarthritis, unspecified site; E66.9 Obesity, unspecified; Z68.36 Body mass index [BMI] 36.0-36.9, adult; D63.8 Anemia in other chronic diseases classified elsewhere; R29.6 Repeated falls
CPT/HCPCS: 36415; 80048-TC; 80061-TC; 82565-TC; 82962-TC; 85025-TC; 97116-TC; 97530-TC

== ENCOUNTER 2019-11-16 10:49 | Inpatient (IN) | payer MEDICARE, OTHER ==
[~2019-11-16] VITALS: Ht 157.5 cm; Wt 78.9 kg
[~2019-11-16 10:49] MED LIST changes: -ASPI-1169 PO; +ASPI-605 PO
[2019-11-16] MEDS ORDERED: ESCI5TAB PO (11:00)
[2019-11-16] MEDS ORDERED: ACET-868 PO (11:00)
[2019-11-16] MEDS ORDERED: LORA-259 PO (11:00)
[2019-11-16] MEDS ORDERED: MAG30ORA PO (11:00)
[2019-11-16] MEDS ORDERED: NORM10004 IV (11:00)
[2019-11-16] MEDS ORDERED: ASPI-1152 PO (11:00)
[2019-11-16] MEDS ORDERED: ACID1TAB12 PO (11:00)
[2019-11-16] MEDS ORDERED: MAGN400O6 PO (11:00)
[2019-11-16] MEDS ORDERED: ALLA266C2 TP (11:00)
[2019-11-16] MEDS ORDERED: TEMA7.5C12 PO (11:00)
[2019-11-16 12:00] VITALS: BP 106/63
[2019-11-16] MEDS ORDERED: ONDANSETRON HCL/PF 4 MG/2 ML VIAL IVP PRN (13:30)
[2019-11-16] MEDS ORDERED: ACETAMINOPHEN 325 MG TABLET PO PRN (13:30)
[2019-11-16] MEDS ORDERED: ZOLPIDEM TARTRATE 5 MG TABLET PO PRN (13:30)
[2019-11-16] MEDS ORDERED: MAGNESIUM HYDROXIDE 30 ML UDC PO PRN (13:30)
[2019-11-16] MEDS ORDERED: Z GUARD REMEDY 2 OZ OINT TP PRN (13:30)
[2019-11-16] MEDS ORDERED: HYDROCODONE/APAP 5/325MG 1 EACH TABLET PO PRN (13:30)
[2019-11-16] MEDS ORDERED: MAG HYDROX/AL HYDROX/SIMETH 30 ML UDC PO PRN (13:30)
[2019-11-16 16:00] VITALS: BP 92/68
[2019-11-16] MEDS: IV NS 0.9% 1,000 ML IV PRN (19:04)
[2019-11-16 20:00] VITALS: BP 136/84
[2019-11-17] MEDS: IV NS 0.9% 1,000 ML IV PRN ×2 (05:54→16:51)
[2019-11-17 06:23] LABS: BASOPHILS % (AUTO) 1.1 % (0.0-2.0); EOSINOPHILS % (AUTO) 11.4 % (0.0-6.0); HEMATOCRIT 28 % (33-45); HEMOGLOBIN 9.4 g/dL (11.5-14.8); LYMPHOCYTES # (AUTO) 1.3 /CMM (0.8-4.8); LYMPHOCYTES % (AUTO) 46.2 % (20.0-44.0); MEAN CORPUSCULAR HGB CONC 34 g/dl (31.0-36.0); MEAN CORPUSCULAR VOLUME 93 fL (82-100); MONOCYTES # (AUTO) 0.2 /CMM (0.1-1.30); MONOCYTES % (AUTO) 6.2 % (2.0-12.0); NEUTROPHILS % (AUTO) 35.1 % (43.0-81.0); PLATELET COUNT (AUTO) 53 /CMM (150-450); WHITE BLOOD COUNT (AUTO) 2.9 K/uL (4.3-11.0)
[2019-11-17 06:48] LABS: ALBUMIN 2.6 g/dL (3.4-5.0); BILIRUBIN,TOTAL 0.6 mg/dL (0.2-1.0); CALCIUM, SERUM 8.3 mg/dL (8.5-10.1); MAGNESIUM 2.2 mg/dL (1.8-2.4); PHOSPHORUS 2.1 mg/dL (2.5-4.9); POTASSIUM 3.4 mmol/L (3.5-5.1); TOTAL PROTEIN, SERUM 5.9 g/dL (6.4-8.2)
[2019-11-17 08:00] VITALS: BP 101/73
[2019-11-17] MEDS: PANTOPRAZOLE 40 MG TABLET.DR PO SCH (08:03)
[2019-11-17] MEDS ORDERED: NEUTRA PHOS 1 POWD.PACKET PO ONE (08:30)
[2019-11-17 08:38] LABS: EOSINOPHILS % (MANUAL) 12 % (0-4); LYMPHOCYTES % (MANUAL) 41 % (16-48); MONOCYTES % (MANUAL) 8 % (0-11.0); NEUTROPHILS % (MANUAL) 39 (42-76)
[2019-11-17] MEDS: ASPIRIN EC 81 MG TABLET.DR PO SCH (08:51)
[2019-11-17] MEDS: ACIDOPHILUS/BULGARICUS 1 EACH TAB.CHEW PO SCH ×2 (08:52→16:51)
[2019-11-17] MEDS: POTASSIUM CHLORIDE 20 MEQ TAB.PRT.SR PO SCH (09:25)
[2019-11-17] MEDS ORDERED: MENTHOL/CETYLPYRD (CEPACOL) 1 LOZ LOZENGE PO PRN (11:00)
[2019-11-17 15:40] VITALS: BP 114/73
[2019-11-17] MEDS: ENSURE ENLIVE 237 ML LIQUID (VANILLA) PO SCH (16:52)
[2019-11-17 20:00] VITALS: BP 127/67
[2019-11-17 20:12] VITALS: BP 127/67
[2019-11-18] MEDS: IV NS 0.9% 1,000 ML IV PRN (03:41)
[2019-11-18 07:16] LABS: BASOPHILS % (AUTO) 0.7 % (0.0-2.0); EOSINOPHILS % (AUTO) 12.2 % (0.0-6.0); HEMATOCRIT 26 % (33-45); HEMOGLOBIN 8.8 g/dL (11.5-14.8); LYMPHOCYTES # (AUTO) 1.3 /CMM (0.8-4.8); LYMPHOCYTES % (AUTO) 44.4 % (20.0-44.0); MEAN CORPUSCULAR HGB CONC 34 g/dl (31.0-36.0); MEAN CORPUSCULAR VOLUME 93 fL (82-100); MONOCYTES # (AUTO) 0.3 /CMM (0.1-1.30); MONOCYTES % (AUTO) 9.6 % (2.0-12.0); NEUTROPHILS # (AUTO) 0.9 /CMM (1.8-8.9); NEUTROPHILS % (AUTO) 33.1 % (43.0-81.0); RED BLOOD CELL COUNT(AUTO) 2.76 MIL/uL (4.0-5.2); WHITE BLOOD COUNT (AUTO) 2.9 K/uL (4.3-11.0)
[2019-11-18 07:30] LABS: PLATELET COUNT (AUTO) 41 /CMM (150-450)
[2019-11-18] MEDS ORDERED: LEVOTHYROXINE SODIUM 100 MCG TABLET PO SCH (07:30)
[2019-11-18] MEDS: ENSURE ENLIVE 237 ML LIQUID (VANILLA) PO SCH (07:33)
[2019-11-18] MEDS: PANTOPRAZOLE 40 MG TABLET.DR PO SCH (07:33)
[2019-11-18 07:35] LABS: CALCIUM, SERUM 8.2 mg/dL (8.5-10.1); MAGNESIUM 1.9 mg/dL (1.8-2.4); PHOSPHORUS 1.6 mg/dL (2.5-4.9); POTASSIUM 3.1 mmol/L (3.5-5.1)
[2019-11-18 08:37] VITALS: BP 111/83
[2019-11-18] MEDS: ASPIRIN EC 81 MG TABLET.DR PO SCH (08:46)
[2019-11-18] MEDS: ACIDOPHILUS/BULGARICUS 1 EACH TAB.CHEW PO SCH ×2 (08:46→17:05)
[2019-11-18] MEDS: POTASSIUM CHLORIDE 20 MEQ TAB.PRT.SR PO SCH ×3 (08:46→12:04)
[2019-11-18 08:52] LABS: EOSINOPHILS % (MANUAL) 11 % (0-4); LYMPHOCYTES % (MANUAL) 38 % (16-48); MONOCYTES % (MANUAL) 13 % (0-11.0); NEUTROPHILS % (MANUAL) 38 (42-76)
[2019-11-18] MEDS ORDERED: METHOTREXATE SODIUM (2.5MG) 2.5 MG TABLET PO SCH (09:00)
[2019-11-18] MEDS ORDERED: K PHOS NEUTRAL 250 MG TABLET PO ONE (11:00)
[2019-11-18] MEDS ORDERED: PANT40TA2 PO (11:13)
[2019-11-18] MEDS ORDERED: LACT-54 PO (11:13)
[2019-11-18] MEDS ORDERED: LEVO500T75 PO (11:13)
[2019-11-18 14:06] LABS: APPEARANCE,URINE SL CLOUDY (CLEAR); BILIRUBIN,URINE NEGATIVE (NEGATIVE); BLOOD, URINE MODERATE Ery/uL (NEGATIVE); COLOR,URINE YELLOW (YELLOW); KETONES,URINE 40 (NEGATIVE); LEUKOCYTE ESTERASE ,URINE NEGATIVE (NEGATIVE); NITRITE, URINE NEGATIVE (NEGATIVE); PROTEIN,URINE NEGATIVE (NEGATIVE); UGLUCOSE NEGATIVE (NEGATIVE); UROBILINOGEN,URINE 0.2 EU/dL (0.2)
[2019-11-18 14:36] LABS: BACTERIA,URINE None seen /HPF (None Seen); HYALINE CASTS, URINE Few /LPF (None Seen); SQUAMOUS EPITHELIAL CELL,UR Rare /HPF (None Seen); WBC,URINE NONE SEEN /HPF (0-3)
[2019-11-18 14:37] LABS: MUCUS,URINE Few /LPF (None Seen)
[2019-11-18 16:10] VITALS: BP_SYST 117; BP_SYST 141; BP_DIAS 55; BP_DIAS 66
[2019-11-18] MEDS ORDERED: ENSURE ENLIVE CHOC 237 ML CAN PO SCH (17:00)
[2019-11-23] MEDS ORDERED: ALENDRONATE 70 MG TABLET PO SCH (09:00)
== END 2019-11-18 18:06 | DRG 641 ==
LOC: MED 10:49
PROVIDERS: ADMIT Internal Medicine; ATTEND Internal Medicine
DX: E86.0 Dehydration (principal); D61.818 Other pancytopenia; E87.1 Hypo-osmolality and hyponatremia; E87.6 Hypokalemia; I25.2 Old myocardial infarction; I10 Essential (primary) hypertension; F41.9 Anxiety disorder, unspecified; F32.9 Major depressive disorder, single episode, unspecified; E03.9 Hypothyroidism, unspecified; E83.39 Other disorders of phosphorus metabolism; M81.0 Age-related osteoporosis without current pathological fracture; M19.90 Unspecified osteoarthritis, unspecified site
CPT/HCPCS: 36415; 71045-TC; 80048-TC; 80053-TC; 80061-TC; 81000-TC; 82962-TC; 83735-TC; 84100-TC; 84484-TC; 85025-TC; 86403-TC; 87040-TC; 87070-TC; 87086-TC; G0378; J7030; J8610

== ENCOUNTER 2019-11-18 18:24 | Inpatient (IN) | payer MEDICARE, OTHER ==
[~2019-11-18] VITALS: Ht 157.5 cm; Wt 78.9 kg
[~2019-11-18 18:24] MED LIST changes: +ACET-868 PO; +ACID1TAB12 PO; +ALLA266C2 TP; +ASPI-1152 PO; -ASPI-605 PO; +ESCI5TAB PO; +LACT-54 PO; +LEVO500T75 PO; +LORA-259 PO; +MAG30ORA PO; +MAGN400O6 PO; +NORM10004 IV; -SACC250C PO; +TEMA7.5C12 PO
[2019-11-18 19:11] VITALS: BP 128/75
--- NOTE | 2019-11-18 19:30 | NUR ---
GPS ADMISSION NOTES: ADMITTED THIS 59-Y/O, FEMALE, FROM [facility] MED SURG. PATIENT ADMITTED ON VOLUNTARY STATUS FOR SEVERE DEPRESSION, UNSTABLE MOOD AND NOT ABLE TO TAKE CARE OF HERSELF. UPON FACE TO FACE ASSESSMENT, PATIENT IS A&O X3, FEELING DEPRESSED, FLAT AFFECT, WITHDRAWN, COOPERATIVE WITH CARE. DENIES SI/HI/AVH AT THIS TIME. IN NO APPARENT DISTRESS NOTED. SKIN BODY ASSESSMENT DONE. WOUND CONSULT ORDERED. PT RIGHTS HANDBOOK DISCUSSED TO THE PATIENT. PT BELONGINGS WERE INVENTORIED & CHECKED FOR CONTRABAND. PT. IS UNDER THE PSYCHIATRIC CARE OF DR. ZHOU, ORDERS OBTAINED & UNDER THE MEDICAL CARE OF DR. BEASLEY. PATIENT EDUCATED TO THE USE OF CALL BARNETT. BED ALARM ON. ENVIRONMENTAL SAFETY CHECK DONE. BED LOCKED & IN LOW POSITION. WILL CONTINUE TO MONITOR Q15 MINUTES FOR SAFETY & BEHAVIOR.
[2019-11-18] MEDS ORDERED: MAG HYDROX/AL HYDROX/SIMETH 30 ML UDC PO PRN ×2 (20:00→21:00)
[2019-11-18] MEDS ORDERED: TEMAZEPAM 7.5 MG CAPSULE PO PRN (20:00)
[2019-11-18] MEDS ORDERED: MAGNESIUM HYDROXIDE 30 ML UDC PO PRN ×2 (20:00→21:00)
[2019-11-18] MEDS ORDERED: ACETAMINOPHEN 325 MG TABLET PO PRN ×2 (20:00→21:00)
[2019-11-18] MEDS ORDERED: LORAZEPAM 0.5 MG TABLET PO PRN (20:00)
[2019-11-18] MEDS ORDERED: Z GUARD REMEDY 2 OZ OINT TP PRN (20:30)
[2019-11-18 20:32] VITALS: BP 127/71
[2019-11-18] MEDS ORDERED: METHOTREXATE SODIUM (2.5MG) 2.5 MG TABLET PO SCH (21:00)
[2019-11-18] MEDS ORDERED: BLOOD SUGAR DIAGNOSTIC 1 EACH STRIP IN ONE (22:00)
[2019-11-19 08:00] VITALS: BP 105/71
[2019-11-19] MEDS: ASPIRIN EC 81 MG TABLET.DR PO SCH (08:25)
[2019-11-19] MEDS: ENSURE ENLIVE CHOC 237 ML CAN PO SCH ×2 (08:25→17:27)
[2019-11-19] MEDS: LEVOTHYROXINE SODIUM 100 MCG TABLET PO SCH (08:25)
[2019-11-19] MEDS: ACIDOPHILUS/BULGARICUS 1 EACH TAB.CHEW PO SCH ×2 (08:25→16:30)
[2019-11-19] MEDS: PANTOPRAZOLE 40 MG TABLET.DR PO SCH (08:25)
[2019-11-19 16:00] VITALS: BP 102/64
[2019-11-19 20:06] VITALS: BP 122/75
[2019-11-19] MEDS: ESCITALOPRAM OXALATE (10 MG) 10 MG TABLET PO SCH (21:22)
[2019-11-20] VITALS (7 sets, daily range): BP systolic 102–137; BP diastolic 63–98
--- NOTE | 2019-11-20 07:09 | NUR ---
GPS-RN CALLED MY ATTENTION BY TEACHER VISUALLY IMPAIRED TO CHECK PATIENT IN THE BATHROOM. FOUND PATIENT SITTING ON THE FLOOR WITH BACK AGAINST THE WALL. ASKED PATIENT WHAT HAPPENED? PATIENT STATED "I SLIPPED OFF THE TOILET WHEN I WAS TRYING TO GET UP FROM THE TOILET. UPON ASSESSMENT NO INJURIES NOTED. PATIENT DENIES HITTING HER HEAD. VITAL SIGNS NOTED AND RECORDED BP 104/70, HR 99, R18, T98.3 O2 100% ON ROOM AIR. NO REPORTS OF DIZZINESS, NO N/V NOTED. SKIN INTACT. PATIENT ASSISTED BACK TO BED AND ENCOURAGE/INSTRUCTED PT. TO ASK FOR ASSISTANCE WHEN USING THE TOILET. BED ALARM ON. BED LOCKED AND IN LOWEST POSITION. SAFETY MEASURES IN PLACE. DESIGN RELEASE ENGINEER MADE AWARE. LEFT VOICE MESSAGE TO KADE DOWNS ([phone]). WILL ENDORSE TO AM SHIFT FOR CONTINUITY OF CARE.
--- NOTE | 2019-11-20 07:20 | NUR ---
GPS-RN PAGED DR. GONGORA REGARDING S/P FALL INCIDENT. AWAITING RESPONSE. WILL FOLLOW UP WITH AM NURSE.
[2019-11-20] MEDS: ENSURE ENLIVE CHOC 237 ML CAN PO SCH ×2 (08:00→17:00)
[2019-11-20 08:05] LABS: BASOPHILS % (AUTO) 0.8 % (0.0-2.0); EOSINOPHILS % (AUTO) 7.2 % (0.0-6.0); HEMATOCRIT 28 % (33-45); HEMOGLOBIN 9.6 g/dL (11.5-14.8); LYMPHOCYTES # (AUTO) 1.2 /CMM (0.8-4.8); LYMPHOCYTES % (AUTO) 33.2 % (20.0-44.0); MEAN CORPUSCULAR HGB CONC 34 g/dl (31.0-36.0); MEAN CORPUSCULAR VOLUME 93 fL (82-100); MONOCYTES # (AUTO) 0.1 /CMM (0.1-1.30); MONOCYTES % (AUTO) 1.8 % (2.0-12.0); PLATELET COUNT (AUTO) 79 /CMM (150-450); RED BLOOD CELL COUNT(AUTO) 3.03 MIL/uL (4.0-5.2); WHITE BLOOD COUNT (AUTO) 3.5 K/uL (4.3-11.0)
[2019-11-20 08:24] LABS: ALBUMIN 2.8 g/dL (3.4-5.0); BILIRUBIN,TOTAL 0.9 mg/dL (0.2-1.0); CREATININE 1.2 mg/dL (0.6-1.3); TOTAL PROTEIN, SERUM 6.4 g/dL (6.4-8.2)
[2019-11-20 08:28] LABS: BAND % (MANUAL) 2 % (0.0-5.0); EOSINOPHILS % (MANUAL) 8 % (0-4); LYMPHOCYTES % (MANUAL) 31 % (16-48); MONOCYTES % (MANUAL) 5 % (0-11.0); NEUTROPHILS % (MANUAL) 54 (42-76)
--- NOTE | 2019-11-20 08:40 | NUR ---
GPS NOTE DR BEASLEY IS MADE AWARE OF PATIENT HAVING FALL INCIDENT 11/20/19 MORNING. THE PATIENT IS SEEN, EXAMINED BY DR BEASLEY. PER NO NEW ORDERS.
[2019-11-20 09:01] LABS: POTASSIUM 2.6 mmol/L (3.5-5.1)
[2019-11-20] MEDS: PANTOPRAZOLE 40 MG TABLET.DR PO SCH (09:19)
[2019-11-20] MEDS: ACIDOPHILUS/BULGARICUS 1 EACH TAB.CHEW PO SCH ×2 (09:19→17:07)
[2019-11-20] MEDS: LEVOTHYROXINE SODIUM 100 MCG TABLET PO SCH (09:20)
[2019-11-20] MEDS: ASPIRIN EC 81 MG TABLET.DR PO SCH (09:20)
--- NOTE | 2019-11-20 10:09 | NUR ---
GPS NOTE DR BEASLEY IS MADE AWARE OF POTASSIUM LEVEL OF 2.6 AND NEW ORDER OF POTASSIUM CHLORIDE 80 MEQ PO X1 IS RECEIVED. THE ORDER IS READ BACK, VERIFIED. NOTED AND CARRIED OUT.
[2019-11-20] MEDS ORDERED: POTASSIUM CHLORIDE 20 MEQ TAB.PRT.SR PO ONE (10:30)
--- NOTE | 2019-11-20 11:17 | NUR ---
GPS NOTE THE PATIENT WITH AN ORDER OF 80 MEQ OF POTASSIUM CHLORIDE. FOR PATIENT SAFETY REASONS ADMINISTERED 40 MEQ OF POTASSIUM CHLORIDE. WILL ADMINISTER THE OTHER 40 MEQ SHORTLY ( HOLDING AT THIS TIME TO MAKE SURE THE PATIENT TOLERATES THE FIRST 40 MEQ OF POTASSIUM CHLORIDE).
--- NOTE | 2019-11-20 11:45 | NUR ---
GPS NOTE THE PATIENT VOMITED X1 CLEAR, YELLOW COLOR AND NOTED IT TO HAVE PARTICLES OF MEDICATION (LOOKS LIKE POTASSIUM). THE PATIENT IS ASSESSED IMMEDIATELY. NOTED THE PATIENT TO BE PAIL. DENIES NAUSEA OR VOMITING AFTER THROWING UP. ABDOMEN SOFT AND NON-DISTENDED. IN ROOM AIR AND DENIES SOB. RESPIRATION REGULAR AND UNLABORED. HOWEVER, NOTED PATIENT BLOOD PRESSURE 118/71, PULSE 102, R18, T 97.8 AND OXYGEN SATURATION IN ROOM AIR AT 99%. PAGED DR BEASLEY.
--- NOTE | 2019-11-20 11:47 | NUR ---
GPS NOTE PATIENT`S BLOOD PRESSURE IS 107/67, PULSE 98, R 18, TEMP 97.8 AND OXYGEN SATURATION IN ROOM AIR IS AT 97%. WATCHING THE PATIENT CLOSELY. DENIES NAUSEA OR VOMITING. DENIES PAIN, SOB. RESPIRATION REGULAR AND UNLABORED.
--- NOTE | 2019-11-20 11:50 | NUR ---
GPS NOTE DR BEASLEY IS MADE AWARE THAT THE PATIENT WAS GIVEN ONLY 40 MEQ OUT OF 80 MEQ. RECEIVED ORDER FROM DR BEASLEY TO GIVEN THE PATIENT 40 MEQ OF POTASSIUM CHLORIDE PO LIQUID FORM AND IF THE PATIENT TOLERATES GIVE ANOTHER 40 MEQ IN THE SAME FORM. 40 MEQ OF POTASSIUM CHLORIDE PO LIQUID FORM NOTED AND CARRIED OUT. WILL ADMINISTER AND MONITOR THE PATIENT CLOSELY. THE PATIENT TO GET TOTAL OF 80 MEQ OF POTASSIUM CHLORIDE PER DR BEASLEY. THE MD WAS ASKED TO TRANSFER THE PATIENT FOR TO ACUTE SETTING FOR FURTHER EVAL AND TREATMENT BUT THE DR BEASLEY REFUSED TO TRANSFER THE PATIENT. WILL CONTINUE TO MONITOR THE PATIENT CLOSELY.
[2019-11-20] MEDS ORDERED: POTASSIUM CHLORIDE 20 MEQ POWDER PACKET PO ONE (12:00)
--- NOTE | 2019-11-20 12:14 | NUR ---
GPS NOTE BLOOD PRESSURE IS 105/53 AND PULSE 63. MOTHER IS BY THE BEDSIDE AND SHE IS MADE AWARE OF PATIENT`S RECENT FALL INCIDENT 11/20/19 MORNING.
--- NOTE | 2019-11-20 13:45 | NUR ---
RT notes Rapid response was called, upon arrival pt was in the restroom and appearing to be lethargic. Pt is able to communicate, no SOB or respiratory distress noted. Pt SpO2 is 98% on room air. Respiratory was cleared by Dr. Lyle.
--- NOTE | 2019-11-20 13:50 | NUR ---
GPS NOTE DR GONGORA STARTED PERIPHERAL IV RAC G 22. NO BLEEDING AT THE INSERTION SITE. PATIENT TOLERATED THE INSERTION WELL.
[2019-11-20] MEDS: HYDROCORTISONE SOD SUCCINATE 100 MG/2 ML VIAL IV SCH ×2 (14:17→17:07)
--- NOTE | 2019-11-20 14:17 | NUR ---
GPS NOTE NEW ORDER OF SOLU-CORTEF 100 MG TID IS NOTED, CARRIED OUT AND FIRST DOSE IS ADMINISTERED.
[2019-11-20] MEDS ORDERED: IV NS 0.9% 1,000 ML IV ONE (14:30)
[2019-11-20] MEDS ORDERED: IV NS 0.9% 1,000 ML BAG IV PRN (14:30)
[2019-11-20] MEDS ORDERED: POTASSIUM CL. PREMIX PERIPHER. 50 ML IV SCH (14:30)
[2019-11-20] MEDS ORDERED: ONDANSETRON HCL/PF 4 MG/2 ML VIAL IV PRN (14:30)
--- NOTE | 2019-11-20 15:30 | NUR ---
GPS NOTE THE FOLLOWING ORDER RECEIVED FROM DR GONGORA: NORMAL SALINE TO INFUSE 40ML/HR (1000 ML IN 24HR X1), POTASSIUM CHLORIDE 40 MEQ IV AND ZOFRAN 4MG Q6HR PRN. THE ORDERS READ READ BACK, VERIFIED. NOTED AND CARRIED OUT. Addendum: 11/20/19 at 1559 by TROY GÓMEZ RN GPS NOTE PER PHARAMCY RATE OF NS IS CHANGED TO 41.667ML/HR. DR GONGORA IS AWARE.
--- NOTE | 2019-11-20 15:53 | NUR ---
RN-CO: Patient's mother and sister will fax the list of her medications ( including hydrocortisone) that she was taking at home. Charge gave them the fax number and direct number.
--- NOTE | 2019-11-20 16:01 | NUR ---
GPS NOTE POTASSIUM CHLORIDE IV INFUSING PER ORDER VIA RAC G 22. NO S/S INFILTRATION NOTED. PATIENT IS TAKING NAP. PATIENT IS IN STABLE CONDITION.
[2019-11-20] MEDS: POTASSIUM CL. PREMIX PERIPHER. 50 ML IV SCH ×4 (16:52→20:23)
--- NOTE | 2019-11-20 17:00 | NUR ---
GPS NOTE POTASSIUM CHLORIDE DUE AT 1430 IS ADMINISTERED BUT LOOKS NOT SCANNED BECAUSE BARCODE ISSUE.
--- NOTE | 2019-11-20 18:49 | NUR ---
GPS NOTE DURING THE SHIFT THE PATIENT RECEIVED 40 MEQ OF PO POTASSIUM CHLORIDE AND 3RD BAG OF POTASSIUM CHLORIDE IV IS INFUSING AT THIS TIME. POTASSIUM CHLORIDE POWDER (2 PACKETS) ARE WAISTED DURING THE SHIFT AND CHARGE NURSE HIRA WITNESSED. PATIENT AT THIS TIME IN BED. ALERT AND ORIENTED X3. IN ROOM AIR AND DENIES SOB. RESPIRATION REGULAR AND UNLABORED. DENIES PAIN. THE PATIENT IN NO APPARENT DISTRESS. THE PATIENT VERBALIZES FEELING BETTER. WILL ENDORSE TO CONTRACT PREPARER TO CONTINUE TO MONITOR THE PATIENT CLOSELY.
--- NOTE | 2019-11-20 19:02 | NUR ---
RN-CO: WASTED 2 POCKETS OF POWDERED KCL WITNESSED.
--- NOTE | 2019-11-20 20:24 | NUR ---
GPS RN NOTES: 4TH POTASSIUM CHLORIDE 10MEQ 50 MLS/ PER HOUR ALREADY GIVEN. FREQUENT IV SITE CHECK. CONTINUE TO MONITOR.
[2019-11-20] MEDS: ESCITALOPRAM OXALATE (10 MG) 10 MG TABLET PO SCH (21:11)
--- NOTE | 2019-11-21 02:25 | NUR ---
GPS NOTE UPON DOING ROUNDS PT AWAKE STRETCHING IN BED SMILING. CHECKED PTS IV LINE AND NS INFUSION. IV STILL INTACT. PT IS ALERT AND ORIENTED X3. IN ROOM AIR AND DENIES SOB. RESPIRATION REGULAR AND UNLABORED. DENIES PAIN. THE PATIENT IN NO APPARENT DISTRESS. THE PATIENT VERBALIZES FEELING BETTER. CONTINUE TO MONITOR.
[2019-11-21 06:26] LABS: EOSINOPHILS % (AUTO) 0.1 % (0.0-6.0); HEMATOCRIT 26 % (33-45); HEMOGLOBIN 8.9 g/dL (11.5-14.8); LYMPHOCYTES # (AUTO) 0.4 /CMM (0.8-4.8); LYMPHOCYTES % (AUTO) 7.8 % (20.0-44.0); MEAN CORPUSCULAR HGB CONC 34 g/dl (31.0-36.0); MEAN CORPUSCULAR VOLUME 93 fL (82-100); MONOCYTES % (AUTO) 0.8 % (2.0-12.0); NEUTROPHILS # (AUTO) 4.4 /CMM (1.8-8.9); NEUTROPHILS % (AUTO) 91.3 % (43.0-81.0); PLATELET COUNT (AUTO) 150 /CMM (150-450); RED BLOOD CELL COUNT(AUTO) 2.79 MIL/uL (4.0-5.2); WHITE BLOOD COUNT (AUTO) 4.9 K/uL (4.3-11.0)
[2019-11-21 06:35] LABS: CREATININE 1.2 mg/dL (0.6-1.3); PHOSPHORUS 2.1 mg/dL (2.5-4.9)
[2019-11-21] MEDS: PANTOPRAZOLE 40 MG TABLET.DR PO SCH (07:45)
[2019-11-21] MEDS: LEVOTHYROXINE SODIUM 100 MCG TABLET PO SCH (07:45)
[2019-11-21 08:00] VITALS: BP 107/69
[2019-11-21] MEDS: ENSURE ENLIVE CHOC 237 ML CAN PO SCH ×2 (08:43→16:57)
--- NOTE | 2019-11-21 08:59 | NUR ---
Family Contact: SW called the pts daughter, Jenna ([phone]), and left a voicemail stating that the SW would like a call back to discuss the pts treatment plan and initial discharge plan.
--- NOTE | 2019-11-21 08:59 | NUR ---
Psychosocial Note: I, Karen Pendleton MSW, attest to the patients previous psychosocial information dated on 11/15/19. Update On Events leading to Admission and Discharge Plan: Pt has returned to the geropsych unit of the hospital within a week of her previous discharge date (11/16/19). Pt came in as a voluntary patient. Upon social insurance analyst evaluation, the pt appeared to be oriented x4 (time, place, self and situation). Pt appears to be in a depressed mood and presents with a labile and distressed affect. Pt states that she is here due to her medical condition and states that she is not psychotic. XAVI met with the pt at bedside and pt appeared to be agitated and stated that she would like to return to her home. Pt appeared to be disheveled and ungroomed. Pt stated that she has an inappropriate appetite and sleeping pattern at this time. Pt appears to be ambulatory with an unsteady gait. Pts insight and judgment appear to be impaired and the pts impulse control is poor. XAVI called the pts daughter, Jenna ([phone]), and left a voicemail stating she would like to discuss the pts discharge plan. The current discharge plan is for the pt to return to her home.
[2019-11-21] MEDS: ACIDOPHILUS/BULGARICUS 1 EACH TAB.CHEW PO SCH ×2 (09:11→16:56)
[2019-11-21] MEDS: ASPIRIN EC 81 MG TABLET.DR PO SCH (09:11)
--- NOTE | 2019-11-21 09:11 | NUR ---
RN NOTE: PHARMACY NOTIFIED OF NEW ORDER FOR PO CORTEF. WILL ADMIN WHEN AVAILABLE.
[2019-11-21] MEDS: HYDROCORTISONE 20 MG TABLET PO SCH ×3 (09:19→16:57)
--- NOTE | 2019-11-21 10:55 | NUR ---
Family Contact: pts daughter, Jenna ([phone]), called the SW and stated that the plan for the pt is for her to return home. She stated that there is a rifle case repairer working with the family to get [facility] services for the pt.
[2019-11-21 16:00] VITALS: BP 131/86
[2019-11-21 16:06] LABS: THYROID STIMULATING HORMONE 0.07 uIU/mL (0.358-3.74)
[2019-11-21] MEDS ORDERED: K PHOS NEUTRAL 250 MG TABLET PO ONE (16:30)
[2019-11-21 20:00] VITALS: BP 128/77
[2019-11-21 20:21] VITALS: BP 128/77
[2019-11-21] MEDS: ESCITALOPRAM OXALATE (10 MG) 10 MG TABLET PO SCH (21:14)
[2019-11-22] MEDS: LEVOTHYROXINE SODIUM 100 MCG TABLET PO SCH (07:29)
[2019-11-22] MEDS: PANTOPRAZOLE 40 MG TABLET.DR PO SCH (07:29)
[2019-11-22 08:00] VITALS: BP 116/70
[2019-11-22] MEDS: ENSURE ENLIVE CHOC 237 ML CAN PO SCH ×2 (08:16→17:56)
[2019-11-22] MEDS: ASPIRIN EC 81 MG TABLET.DR PO SCH (08:22)
[2019-11-22] MEDS: ACIDOPHILUS/BULGARICUS 1 EACH TAB.CHEW PO SCH ×2 (08:22→17:14)
[2019-11-22] MEDS: HYDROCORTISONE 20 MG TABLET PO SCH ×2 (08:22→17:14)
--- NOTE | 2019-11-22 09:46 | NUR ---
WOUND CARE CONSULT: PT PRESENTS WITH DRY SCRATCH LEDESMA ON BUTTOCKS, PRESENT ON ADMISSION. PT STATES THAT SHE PREVIOUSLY SCRATCHED SKIN ON BUTTOCKS. PT IS CONTINENT AT THIS TIME. PT VERBALIZED THAT SHE WILL AVOID SCRATCHING HER SKIN. WILL SEE PRN. DISCUSSED SKIN PROTECTION WITH NURSING STAFF. Addendum: 11/22/19 at 0948 by SHAHLA SCHULTE WNDNU Amended: Links added.
[2019-11-22 10:31] LABS: HEMATOCRIT 23 % (33-45); LYMPHOCYTES # (AUTO) 0.5 /CMM (0.8-4.8); LYMPHOCYTES % (AUTO) 6.8 % (20.0-44.0); MEAN CORPUSCULAR HGB CONC 34 g/dl (31.0-36.0); MEAN CORPUSCULAR VOLUME 95 fL (82-100); MONOCYTES # (AUTO) 0.2 /CMM (0.1-1.30); MONOCYTES % (AUTO) 2.2 % (2.0-12.0); PLATELET COUNT (AUTO) 219 /CMM (150-450); RED BLOOD CELL COUNT(AUTO) 2.47 MIL/uL (4.0-5.2); WHITE BLOOD COUNT (AUTO) 7.7 K/uL (4.3-11.0)
[2019-11-22 11:19] LABS: CALCIUM, SERUM 8.7 mg/dL (8.5-10.1); CREATININE 0.9 mg/dL (0.6-1.3); PHOSPHORUS 2.5 mg/dL (2.5-4.9)
--- NOTE | 2019-11-22 15:09 | NUR ---
RN-CO: Called Dr Cardona regarding Hemoglobin 8, and hematocrit 23. Awaiting for orders.
[2019-11-22 16:00] VITALS: BP 115/71
[2019-11-22 19:49] VITALS: BP 115/69
[2019-11-22 20:00] VITALS: BP 115/69
[2019-11-22] MEDS: ESCITALOPRAM OXALATE (10 MG) 10 MG TABLET PO SCH (21:28)
[2019-11-23 07:11] LABS: BASOPHILS % (AUTO) 0.1 % (0.0-2.0); HEMATOCRIT 23 % (33-45); LYMPHOCYTES # (AUTO) 0.6 /CMM (0.8-4.8); LYMPHOCYTES % (AUTO) 14.4 % (20.0-44.0); MEAN CORPUSCULAR HGB CONC 35 g/dl (31.0-36.0); MEAN CORPUSCULAR VOLUME 94 fL (82-100); MONOCYTES # (AUTO) 0.2 /CMM (0.1-1.30); MONOCYTES % (AUTO) 5.3 % (2.0-12.0); NEUTROPHILS # (AUTO) 3.5 /CMM (1.8-8.9); NEUTROPHILS % (AUTO) 80.2 % (43.0-81.0); PLATELET COUNT (AUTO) 221 /CMM (150-450); RED BLOOD CELL COUNT(AUTO) 2.44 MIL/uL (4.0-5.2); WHITE BLOOD COUNT (AUTO) 4.3 K/uL (4.3-11.0)
[2019-11-23 07:24] LABS: CALCIUM, SERUM 9.2 mg/dL (8.5-10.1); MAGNESIUM 2.1 mg/dL (1.8-2.4); PHOSPHORUS 2.7 mg/dL (2.5-4.9); POTASSIUM 3.2 mmol/L (3.5-5.1)
[2019-11-23] MEDS ORDERED: ALENDRONATE 70 MG TABLET PO SCH (07:30)
[2019-11-23 08:00] VITALS: BP 119/72
[2019-11-23] MEDS: LEVOTHYROXINE SODIUM 100 MCG TABLET PO SCH (08:29)
[2019-11-23] MEDS: PANTOPRAZOLE 40 MG TABLET.DR PO SCH (08:29)
[2019-11-23] MEDS: ASPIRIN EC 81 MG TABLET.DR PO SCH (08:29)
[2019-11-23] MEDS: HYDROCORTISONE 20 MG TABLET PO SCH ×2 (08:31→17:25)
[2019-11-23] MEDS: ACIDOPHILUS/BULGARICUS 1 EACH TAB.CHEW PO SCH ×2 (08:32→17:26)
[2019-11-23] MEDS: Z GUARD REMEDY 2 OZ OINT TP SCH (08:33)
[2019-11-23] MEDS: POTASSIUM CHLORIDE 20 MEQ TAB.PRT.SR PO SCH (08:43)
[2019-11-23] MEDS: ENSURE ENLIVE CHOC 237 ML CAN PO SCH ×2 (08:59→17:33)
[2019-11-23] MEDS ORDERED: POTASSIUM CHLORIDE 20 MEQ TAB.PRT.SR PO ONE (10:30)
--- NOTE | 2019-11-23 15:33 | NUR ---
Group Note: SW encouraged pt to participate in group on 11/23/19 at 2pm discussing suicidal urges and ideation. Pt stated that she did not feel comfortable being in the activities room at this time because she felt fatigued. SW stated that it was part of her treatment goals to attend group and also to engage in her environment so as to be so isolated and withdrawn. Pt stated that she did not feel well and therefore she would like to remain in her room.
[2019-11-23 16:00] VITALS: BP 129/74
--- NOTE | 2019-11-23 16:00 | NUR ---
pt. endorsed to me by mike.no change in status.
--- NOTE | 2019-11-23 19:05 | NUR ---
GPS RN NOTES: RECEIVED PATIENT Patient in the hallway, ambulates independently. A/O x3 appears calm, tolerating room air. Facial color pale, denies pain, no c/o SOB. Fall precaution maintained. Continue safety check every hour.
[2019-11-23 20:00] VITALS: BP 127/76
[2019-11-23] MEDS: ESCITALOPRAM OXALATE (10 MG) 10 MG TABLET PO SCH (21:29)
--- NOTE | 2019-11-24 06:23 | NUR ---
GPS RN NOTES: END OF SHIFT REPORT Patient in bed, stable oxygen saturation on room air. Patient is A/O x3, compliant with medication. No acute events overnight, denies pain, 8.5 hours sleep. Hourly rounds, safety measure in place. Will endorse to Oncoming RN.
[2019-11-24 06:29] LABS: HEMATOCRIT 25 % (33-45); HEMOGLOBIN 8.5 g/dL (11.5-14.8); LYMPHOCYTES # (AUTO) 0.8 /CMM (0.8-4.8); LYMPHOCYTES % (AUTO) 21.5 % (20.0-44.0); MEAN CORPUSCULAR HGB CONC 35 g/dl (31.0-36.0); MEAN CORPUSCULAR VOLUME 93 fL (82-100); MONOCYTES # (AUTO) 0.4 /CMM (0.1-1.30); MONOCYTES % (AUTO) 9.8 % (2.0-12.0); NEUTROPHILS # (AUTO) 2.7 /CMM (1.8-8.9); NEUTROPHILS % (AUTO) 68.7 % (43.0-81.0); PLATELET COUNT (AUTO) 242 /CMM (150-450); RED BLOOD CELL COUNT(AUTO) 2.65 MIL/uL (4.0-5.2); WHITE BLOOD COUNT (AUTO) 3.9 K/uL (4.3-11.0)
[2019-11-24 06:40] LABS: CREATININE 0.9 mg/dL (0.6-1.3); POTASSIUM 3.7 mmol/L (3.5-5.1)
[2019-11-24 08:00] VITALS: BP 142/76
[2019-11-24] MEDS: ACIDOPHILUS/BULGARICUS 1 EACH TAB.CHEW PO SCH ×2 (08:39→16:37)
[2019-11-24] MEDS: ASPIRIN EC 81 MG TABLET.DR PO SCH (08:39)
[2019-11-24] MEDS: POTASSIUM CHLORIDE 20 MEQ TAB.PRT.SR PO SCH (08:39)
[2019-11-24] MEDS: LEVOTHYROXINE SODIUM 100 MCG TABLET PO SCH (08:40)
[2019-11-24] MEDS: PANTOPRAZOLE 40 MG TABLET.DR PO SCH (08:40)
[2019-11-24] MEDS: HYDROCORTISONE 20 MG TABLET PO SCH (08:41)
[2019-11-24] MEDS: ENSURE ENLIVE CHOC 237 ML CAN PO SCH ×2 (08:41→16:38)
[2019-11-24] MEDS: Z GUARD REMEDY 2 OZ OINT TP SCH (08:52)
--- NOTE | 2019-11-24 15:52 | NUR ---
GROUP NOTE: SW encouraged pt to attend group on this present day discussing "discharge planning." Pt was present in group but did not participate. Pt was facing the opposite direction and just stated that she will be returning home. Pt was not engaged. SW attempted to engage pt in conversation but refused.
[2019-11-24 16:00] VITALS: BP 148/76
--- NOTE | 2019-11-24 19:30 | NUR ---
RN OPENING NOTES: RECEIVED PATIENT IN BED, AWAKE. A/O X3. NO COMPLAIN OF PAIN. NO SOB. PATIENT IS CALM. BED IN LOWEST AND LOCKED POSITION.
[2019-11-24 20:00] VITALS: BP 143/76
[2019-11-24 20:25] VITALS: BP 143/63
[2019-11-24] MEDS: ESCITALOPRAM OXALATE (10 MG) 10 MG TABLET PO SCH (23:04)
[2019-11-25 08:00] VITALS: BP 120/77
[2019-11-25] MEDS: ENSURE ENLIVE CHOC 237 ML CAN PO SCH ×2 (08:33→17:00)
[2019-11-25] MEDS: ACIDOPHILUS/BULGARICUS 1 EACH TAB.CHEW PO SCH ×2 (08:34→17:12)
[2019-11-25] MEDS: LEVOTHYROXINE SODIUM 100 MCG TABLET PO SCH (08:34)
[2019-11-25] MEDS: PANTOPRAZOLE 40 MG TABLET.DR PO SCH (08:34)
[2019-11-25] MEDS: ASPIRIN EC 81 MG TABLET.DR PO SCH (08:34)
[2019-11-25] MEDS: HYDROCORTISONE 20 MG TABLET PO SCH (08:34)
[2019-11-25] MEDS: POTASSIUM CHLORIDE 20 MEQ TAB.PRT.SR PO SCH (08:34)
[2019-11-25] MEDS: Z GUARD REMEDY 2 OZ OINT TP SCH (08:37)
[2019-11-25] MEDS ORDERED: METHOTREXATE SODIUM (2.5MG) 2.5 MG TABLET PO SCH (09:00)
[2019-11-25 16:00] VITALS: BP 124/83
[2019-11-25 19:55] VITALS: BP 150/62
[2019-11-25 20:30] VITALS: BP 150/62
[2019-11-25 21:45] VITALS: BP 139/65
[2019-11-25] MEDS: ESCITALOPRAM OXALATE (10 MG) 10 MG TABLET PO SCH (21:45)
--- NOTE | 2019-11-26 03:25 | NUR ---
GPS RN NOTE PATIENT IS SLEEPING COMFORTABLY AT THIS TIME. ALL NEEDS ANTICIPATED & MET. WILL CONTINUE TO MONITOR CLOSELY FOR SAFETY & BEHAVIOR.
[2019-11-26 08:00] VITALS: BP 131/75
[2019-11-26] MEDS: ACIDOPHILUS/BULGARICUS 1 EACH TAB.CHEW PO SCH ×2 (08:01→16:36)
[2019-11-26] MEDS: LEVOTHYROXINE SODIUM 100 MCG TABLET PO SCH (08:01)
[2019-11-26] MEDS: POTASSIUM CHLORIDE 20 MEQ TAB.PRT.SR PO SCH (08:01)
[2019-11-26] MEDS: HYDROCORTISONE 20 MG TABLET PO SCH (08:01)
[2019-11-26] MEDS: PANTOPRAZOLE 40 MG TABLET.DR PO SCH (08:01)
[2019-11-26] MEDS: ASPIRIN EC 81 MG TABLET.DR PO SCH (08:01)
[2019-11-26] MEDS: Z GUARD REMEDY 2 OZ OINT TP SCH (08:02)
[2019-11-26] MEDS: ENSURE ENLIVE CHOC 237 ML CAN PO SCH ×2 (08:03→16:37)
[2019-11-26 16:10] VITALS: BP 127/78
--- NOTE | 2019-11-26 17:35 | NUR ---
GPS/RN-NOTES SEEN BY GLYNN NAVA AND MADE AWARE OF PATIENT POOR FOOD INTAKE AND EPISODE OF REFUSING ENSURE SUPPLEMENT.
--- NOTE | 2019-11-26 20:07 | NUR ---
GPS RN OPENING NOTE RECEIVED PT RESTING IN BED COMFORTABLY, NO ACUTE DISTRESS NOTED. PT IS A & O X3, CALM, RELAXED, COOPERATIVE, PLEASANT, FLAT AFFECT, DEPRESSED MOOD, POOR PO INTAKE PER AM RN REPORT. ENCOURAGED PATIENT TO EAT SNACK & TAKE PO FLUIDS BUT HAD ONLY FEW SIPS OF JUICE. WILL CONTINUE TO ENCOURAGE PO INTAKE. ISOLATIVE, GUARDED, MED COMPLIANT, DENIES SI/HI/AVH AT TIME. ENVIRONMENTAL SAFETY CHECKS DONE. BED ALARM ON. BED IN LOW LOCKED POSITION. WILL CONTINUE TO MONITOR Q 15 MINS. FOR SAFETY & BEHAVIOR.
[2019-11-26 20:28] VITALS: BP 137/75
[2019-11-26] MEDS: ESCITALOPRAM OXALATE (10 MG) 10 MG TABLET PO SCH (21:58)
[2019-11-27 08:00] VITALS: BP 127/68
[2019-11-27] MEDS: ACIDOPHILUS/BULGARICUS 1 EACH TAB.CHEW PO SCH ×2 (08:10→17:14)
[2019-11-27] MEDS: ENSURE ENLIVE CHOC 237 ML CAN PO SCH ×2 (08:10→17:14)
[2019-11-27] MEDS: POTASSIUM CHLORIDE 20 MEQ TAB.PRT.SR PO SCH (08:10)
[2019-11-27] MEDS: ASPIRIN EC 81 MG TABLET.DR PO SCH (08:10)
[2019-11-27] MEDS: PANTOPRAZOLE 40 MG TABLET.DR PO SCH (08:10)
[2019-11-27] MEDS: Z GUARD REMEDY 2 OZ OINT TP SCH (08:41)
[2019-11-27] MEDS: MEGESTROL ACETATE 40 MG TABLET PO SCH ×2 (08:43→17:14)
[2019-11-27] MEDS: LEVOTHYROXINE SODIUM 100 MCG TABLET PO SCH (08:44)
[2019-11-27] MEDS ORDERED: HYDROCORTISONE 20 MG TABLET PO SCH (09:00)
--- NOTE | 2019-11-27 16:45 | NUR ---
GPS RN NOTE: PT TRANSFER TO OVERFLOW ROOM 202
--- NOTE | 2019-11-27 17:00 | NUR ---
gps ovrflw notes: Received patient from Lorena, GPS RN. Patient is a/o x3, able to make needs known. not in nay form of distress. no sob. denied pain or discomfort at this time. no iv access noted. on voluntary commitment. denied si/hi. situated patient in the room. kept patient safe and comfortable. bed in low/locked position, siderails upx3, bed alarm on. will continue to monitor accordingly.
[2019-11-27 18:35] LABS: APPEARANCE,URINE CLEAR (CLEAR); BILIRUBIN,URINE SMALL (NEGATIVE); BLOOD, URINE TRACE Ery/uL (NEGATIVE); COLOR,URINE YELLOW (YELLOW); KETONES,URINE TRACE (NEGATIVE); LEUKOCYTE ESTERASE ,URINE SMALL (NEGATIVE); NITRITE, URINE NEGATIVE (NEGATIVE); PROTEIN,URINE NEGATIVE (NEGATIVE); UGLUCOSE NEGATIVE (NEGATIVE); UROBILINOGEN,URINE 0.2 EU/dL (0.2)
[2019-11-27 18:52] LABS: BACTERIA,URINE 2+ /HPF (None Seen); SQUAMOUS EPITHELIAL CELL,UR 0-2 /HPF (None Seen)
--- NOTE | 2019-11-27 19:24 | NUR ---
RN CLOSING NOTES PATIENT IN STABLE CONDITION. DENIED SI/HI. ALL NEEDS ATTENDED AND PROVIDED. ALL DUE MEDS GIVEN ORDERED. ASSISTED WITH ADLS. KEPT PATIENT SAFE AND COMFORTABLE. BED IN LOW,LOCKED POSITION. SIDERAILS UPX2, BED ALARM ON. ENDORSED ACCORDINGLY.
[2019-11-27 20:00] VITALS: BP 123/78
--- NOTE | 2019-11-27 20:02 | NUR ---
GPS RN NOTES RECEIVED PATIENT AWAKE AND CALM IN BED. CALL LIGHT WITHIN REACH. NO C/O PAIN OR DISCOMFORT. DENIES THOUGHTS OF DTS OR DTO. PATIENT PLACED NEAR STATION FOR CLOSE FREQUENT [id number] SAFETY MONITORING. BED IN LOW LOCK SETTING WITH BED ALARM ON AND FUNCTIONING PROPERLY. ROOM FREE OF CLUTTER AND BELONGINGS KEPT NEAR BEDSIDE. WILL CONTINUE TO MONITOR.
[2019-11-27] MEDS: ESCITALOPRAM OXALATE (10 MG) 10 MG TABLET PO SCH (21:20)
--- NOTE | 2019-11-28 06:32 | NUR ---
GPS RN NOTES PATIENT ASLEEP IN BED WITH NO DISTRESS NOTED. NO C/O PAIN OR DISCOMFORT. PATIENT CALM AND COMPLIANT WITH NURSING CARE. ALL DUE MEDS GIVEN ORDERED WITH NO ASE. PATIENT PLACED NEAR STATION FOR CLOSE FREQUENT [id number] SAFETY MONITORING. BED IN LOW LOCK SETTING WITH BED ALARM ON AND FUNCTIONING PROPERLY. ROOM FREE OF CLUTTER AND BELONGINGS KEPT NEAR BEDSIDE. WILL CONTINUE TO MONITOR.
[2019-11-28 08:00] VITALS: BP 118/69
--- NOTE | 2019-11-28 08:00 | NUR ---
rn notes patient stable lying in the bed, no acute respiratory distress, v/s stable, ambulatory, self care, med compliant. refused si/hi/avh at this time. refractable. safety precaution maintained all the time.
[2019-11-28] MEDS: ENSURE ENLIVE CHOC 237 ML CAN PO SCH ×2 (08:06→18:31)
[2019-11-28] MEDS: ASPIRIN EC 81 MG TABLET.DR PO SCH (08:08)
[2019-11-28] MEDS: ACIDOPHILUS/BULGARICUS 1 EACH TAB.CHEW PO SCH ×2 (08:08→18:31)
[2019-11-28] MEDS: LEVOTHYROXINE SODIUM 100 MCG TABLET PO SCH (08:09)
[2019-11-28] MEDS: PANTOPRAZOLE 40 MG TABLET.DR PO SCH (08:09)
[2019-11-28] MEDS: Z GUARD REMEDY 2 OZ OINT TP SCH (08:09)
[2019-11-28] MEDS: POTASSIUM CHLORIDE 20 MEQ TAB.PRT.SR PO SCH (08:09)
[2019-11-28] MEDS: MEGESTROL ACETATE 40 MG TABLET PO SCH ×2 (08:09→18:31)
[2019-11-28] MEDS: HYDROCORTISONE 20 MG TABLET PO SCH (09:44)
[2019-11-28 16:00] VITALS: BP 132/71
--- NOTE | 2019-11-28 16:36 | NUR ---
Family Contact: SW called the pts daughter, Jenna ([phone]), and left a voicemail stating that the pt is being discharged the following day and to call back with the details of her transportation.
--- NOTE | 2019-11-28 19:50 | NUR ---
MS2/RN RECEIVED PATIENT IN ROOM IN BED AWAKE, ALERT, ORIENTED, CALM AND COMFORTABLE, NO C/O PAIN, NO DISTRESS NOTED, CALL LIGHT IN REACH. WILL MONITOR.
[2019-11-28 20:58] VITALS: BP 123/74
[2019-11-28] MEDS: ESCITALOPRAM OXALATE (10 MG) 10 MG TABLET PO SCH (21:53)
--- NOTE | 2019-11-29 01:48 | NUR ---
MS2/RN PATIENT IS SLEEPING AT THIS TIME, APPEAR COMFORTABLE, NO SIGNS OF DISTRESS NOTED, CALL LIGHT IN REACH. WILL CONTINUE TO MONITOR.
[2019-11-29] MEDS: MEGESTROL ACETATE 40 MG TABLET PO SCH (08:01)
[2019-11-29] MEDS: PANTOPRAZOLE 40 MG TABLET.DR PO SCH (08:01)
[2019-11-29] MEDS: POTASSIUM CHLORIDE 20 MEQ TAB.PRT.SR PO SCH (08:01)
[2019-11-29] MEDS: LEVOTHYROXINE SODIUM 100 MCG TABLET PO SCH (08:01)
[2019-11-29] MEDS: ASPIRIN EC 81 MG TABLET.DR PO SCH (08:01)
[2019-11-29] MEDS: ACIDOPHILUS/BULGARICUS 1 EACH TAB.CHEW PO SCH (08:01)
[2019-11-29] MEDS: ENSURE ENLIVE CHOC 237 ML CAN PO SCH (08:02)
[2019-11-29] MEDS: HYDROCORTISONE 20 MG TABLET PO SCH (08:03)
[2019-11-29] MEDS: Z GUARD REMEDY 2 OZ OINT TP SCH (08:04)
--- NOTE | 2019-11-29 08:59 | NUR ---
Family Contact: SW called the pts daughter, Jenna ([phone]), and the phone went straight to voicemail.
--- NOTE | 2019-11-29 09:02 | NUR ---
Family Contact: SW called the pts mother, Varsha ([phone]), and the phone went straight to voicemail. SW left a message stating that the pt is being discharged today and that someone would need to come and pick her up.
--- NOTE | 2019-11-29 10:34 | NUR ---
Family Contact: Pts mother, Varsha ([phone]), called the SW and stated that she will arrive with the pts brother around 1pm to tow picker the pt.
--- NOTE | 2019-11-29 12:14 | NUR ---
RN NOTES PATIENT WILL DISCHARGE HOME SELF CARE PER PSYCHIATRIST. PATIENT DENIED SI/HI/AVH AT THIS TIME, SAFETY PRECAUTION MAINTAINED ALL THE TIME.
--- NOTE | 2019-11-29 13:59 | NUR ---
Discharge Note: Pt was discharged to back to her home located at [facility] [place] [address]; ([phone]). Pt was discharged at 12:30pm and was picked up by her mother, Varsha ([phone]), who is coming with the pts brother. Pts daughter, Jenna ([phone]), stated that their patient case coordinator in that [facility] was working on getting the pt services in the home. Upon discharge, the pt appeared to be in a euthymic mood and presented with a calm affect. Pt appeared to be alert and oriented x4 (time, place, self and situation). Pt denied both suicidal and homicidal ideation as well as auditory and visual hallucinations. Pt will be under the care of psychiatrist, Dr. Howell, located at [address] [facility] [address] [facility] [address] [address]; and will be under the care of her solidworks drafter, Dr. Pena, located at [address] [place] [address]; ; and a fax of records was sent to: . Pt has an appointment on 12/06/19 at 11:15am.
--- NOTE | 2019-11-29 14:06 | NUR ---
BIOMEDICAL ENGINEER NOTES PATIENT DISCHARGE AT THIS TIME GOING HOME SELF CARE. PATIENT A/O X3, STABLE, V/S WNL, REFUSED PAIN. REFUSED SI/HI/AVH AT THIS TIME OF DISCHARGE. MED RECONCILIATION AND DISCHARGE ORDER REVIEWED AND EXPLAINED TO THE PATIENT AND MOTHER. PATIENT VERBALIZED UNDERSTANDING. PATIENT SIGN PAPERWORK, PICTURE TAKEN . PRESCRIPTION HANDED TO THE PATIENT. PATIENT WILL FOLLOW PRIMARY MD, AND PSYCHIATRIST. ESCORTED PATIENT TO THE LOBBY WITH WHEELCHAIR TO SAFETY. PATIENT MBA INTERN BY MOTHER, AND BROTHER PHONE # [phone] NAME SALVADOR.
== END 2019-11-29 14:05 | disposition home or self-care (01) | DRG 885 ==
LOC: GPS 18:24 → GPSOV2 11-27 15:34
PROVIDERS: ADMIT Psychiatry & Neurology Psychiatry; ATTEND Nurse Practitioner Acute Care
DX: F33.2 Major depressive disorder, recurrent severe without psychotic features (principal); E27.40 Unspecified adrenocortical insufficiency; E87.1 Hypo-osmolality and hyponatremia; D61.818 Other pancytopenia; F29 Unspecified psychosis not due to a substance or known physiological condition; F41.9 Anxiety disorder, unspecified; I10 Essential (primary) hypertension; I25.2 Old myocardial infarction; E03.9 Hypothyroidism, unspecified; E83.39 Other disorders of phosphorus metabolism; E87.6 Hypokalemia; R26.9 Unspecified abnormalities of gait and mobility; Z86.011 Personal history of benign neoplasm of the brain; Z98.890 Other specified postprocedural states; M19.90 Unspecified osteoarthritis, unspecified site; M81.0 Age-related osteoporosis without current pathological fracture; Z91.81 History of falling
CPT/HCPCS: 36415; 80048-TC; 80053-TC; 80061-TC; 81000-TC; 82962-TC; 83735-TC; 84100-TC; 84439-TC; 84443-TC; 84481; 85025-TC; 87086-TC; 97116-TC; 97530-TC; J1720; J2405; J3480; J7030; J8610